=== PATIENT | female | born 1960 | race Caucasian/White ===

== ENCOUNTER 2024-05-29 14:32 | Emergency (ER) | payer MEDICARE, MEDICAID, SELFPAY ==
[2024-05-29] VITALS (19 sets, daily range): BP systolic 145–179; BP diastolic 39–88; PULSE 66–88; RESP 14–20; TEMP 36.4–36.8; O2SAT 96–100
--- NOTE | 2024-05-29 14:49 | W.ED.GENAD ---
Discharge Plan Disposition Patient Disposition: Transfer-Acute Inpatient Care Specific Acute Inpt Facility: [facility] Condition: Stable Discharge Details Clinical Impression: Hernia with obstruction, Ovarian cyst Primary Care Provider: Sofía Brady ED Provider: Ollie Morales Home Meds and New Rx's Prescriptions: No Action cholecalciferol (vitamin D3) 25 mcg (1,000 unit) tablet 50 mcg PO DAILY Qty: 90 3RF acetaminophen [Tylenol Arthritis Pain] 650 mg tablet extended release 1,300 mg PO Q12H metoprolol succinate 50 mg tablet extended release 24 hr 50 mg PO DAILY Qty: 30 2RF HPI General Date/Time Provider Initiated Documentation: 05/29/24 14:33. HPI Narrative: 63 year-old female presents to ED today by POV/ambulating with a chief complaint of lower abdominal pain, worsening over the past 3 days. Quality described as sharp abdominal pain, no radiation to diarrhea, nausea, denies complete constipation, unsure if passing flatus, denies fever, denies chest pain, endorses mild cough. Severity is described as 6/10. Palliating factors include nothing helping. Provoking factors include movement, touch. Events leading up to the incident/Associated Symptoms: Patient has history of abdominal wall hernias, has prior surgical history at [facility], history of uterine malignancy. Patient not anticoagulated. Related Data Home Medications ?Medication ?Instructions ?Recorded ?Confirmed acetaminophen 650 mg 1,300 mg PO Q12H 05/18/24 05/29/24 tablet,extended release (Tylenol Arthritis Pain) cholecalciferol (vitamin D3) 25 50 mcg (2 x 25 mcg (1,000 unit)) 05/19/24 05/29/24 mcg (1,000 unit) tablet PO DAILY #90 tabs metoprolol succinate 50 mg 50 mg PO DAILY #30 tabs 05/24/24 05/29/24 tablet,extended release 24 hr Previous Rx's ?Medication ?Instructions ?Recorded cholecalciferol (vitamin D3) 25 50 mcg (2 x 25 mcg (1,000 unit)) 05/19/24 mcg (1,000 unit) tablet PO DAILY #90 tabs metoprolol succinate 50 mg 50 mg PO DAILY #30 tabs 05/24/24 tablet,extended release 24 hr Allergies Allergy/AdvReac Type Severity Reaction Status Date / Time albuterol Allergy Unknown Anxiety Verified 05/29/24 14:42 amoxicillin Allergy Unknown Itchiness, Verified 05/29/24 14:42 swelling aspirin Allergy Unknown Unknown Verified 05/29/24 14:42 azithromycin (From Zithromax) Allergy Unknown Itchiness Verified 05/29/24 14:42 calcitonin Allergy Unknown Dizziness/L Verified 05/29/24 14:42 ighthead ciprofloxacin Allergy Unknown Anxiety Verified 05/29/24 14:42 doxycycline Allergy Unknown Unknown Verified 05/29/24 14:42 hydrochlorothiazide Allergy Unknown Stomach Verified 05/29/24 14:42 pain ibuprofen Allergy Unknown Unknown Verified 05/29/24 14:42 metformin Allergy Unknown Unknown Verified 05/29/24 14:42 omeprazole Allergy Unknown Unknown Verified 05/29/24 14:42 pantoprazole Allergy Unknown Unknown Verified 05/29/24 14:42 paroxetine Allergy Unknown Unknown Verified 05/29/24 14:42 Penicillins Allergy Unknown Itchiness, Verified 05/29/24 14:42 swelling phenazopyridine (From Allergy Unknown Unknown Verified 05/29/24 14:42 Pyridium) polyethylene glycol 3350 Allergy Unknown Unknown Verified 05/29/24 14:42 (From Miralax) prednisone Allergy Unknown unknown Verified 05/29/24 14:42 sulfamethoxazole (From Allergy Unknown Unknown Verified 05/29/24 14:42 Bactrim) trimethoprim (From Bactrim) Allergy Unknown Unknown Verified 05/29/24 14:42 General Stated Complaint: Abd Prob STELLA: 3 Review of Systems All systems reviewed & are unremarkable except as noted in HPI and below Exam Narrative Exam Narrative: GENERAL APPEARANCE: Morbidly obese, non-toxic, awake and alert, atraumatic, no acute distress. SKIN: Warm, pink, dry, intact, without rashes/lesions/ulcerations. HEAD: Normocephalic, atraumatic, normal hair distribution for gender/age. EYES: Normal conjunctiva, no exudates on lids/lashes. ENT: Nares patent, no circumoral cyanosis, no facial swelling NECK: Supple, trachea midline, painless cervical ROM. LUNGS/CHEST: Lungs CTA bilaterally-difficult to auscultate due to body habitus, non-labored respirations, normal A/P diameter, symmetrical expansion, no chest wall deformity HEART (CV/PV): Regular rate and rhythm without murmur, no peripheral edema, no JVD. ABDOMEN:, Hypoactive bowel sounds but difficult due to body habitus, soft, non-distended, no guarding, diffuse lower abdominal tenderness, negative Bauman sign, no CVA tenderness bilaterally to percussion. MSK: Normal ROM, no swelling/deformity to bilateral UEs or LEs, moving all extremities without weakness, no cyanosis, spine midline without tenderness, normal curvature. NEURO: Mental Status AAOx4 - alert to person, place, time, events No facial droop, no forehead involvement. Motor: No focal weakness - strength 5/5 in bilateral UEs and LEs, proximal and distal, symmetric. Sensory: sensation intact to light touch globally. Gait NT PSYCH: euthymic, cooperative, pleasant, appropriate speech Course Vital Signs Vital signs: Vital Signs Pulse 71 05/29/24 14:39 Respiratory Rate 20 05/29/24 14:39 Blood Pressure 175/57 H 05/29/24 14:39 Pulse Oximetry 98 05/29/24 14:39 Pulse 71 05/29/24 14:39 Respiratory Rate 20 05/29/24 14:39 Respiratory Effort Normal, Non-Labored 05/29/24 14:42 Blood Pressure 175/57 H 05/29/24 14:39 Blood Pressure Position Sitting 05/29/24 14:39 Pulse Oximetry 98 05/29/24 14:39 Oxygen Delivery Method Room Air 05/29/24 14:39 Oxygen Flow Rate 0 05/29/24 14:39 Medical Decision Making This dictation utilizes [id number] dictation software and may contain unedited grammatical errors. 63 year-old female presents to ED today by POV/ambulating with a chief complaint of lower abdominal pain, worsening over the past 3 days. Quality described as sharp abdominal pain, no radiation to diarrhea, nausea, denies complete constipation, unsure if passing flatus, denies fever, denies chest pain, endorses mild cough. Severity is described as 6/10. Palliating factors include nothing helping. Provoking factors include movement, touch. Events leading up to the incident/Associated Symptoms: Patient has history of abdominal wall hernias, has prior surgical history at [facility], history of uterine malignancy. Patients' medical history: Morbid obesity, history of cholecystectomy, prediabetes, GERD, hypertension, essential tremor, asthma, KOLBY. 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 Pertinent exam findings / vital signs include morbid obesity makes exam somewhat difficult, has diffuse lower abdominal tenderness, no right upper or left upper quadrant tenderness, negative Bauman sign, no CVA tenderness to percussion bilaterally, lungs difficult to auscultate due to morbid obesity, regular rate and rhythm, neuro intact, nontoxic vitals. Differential / pathologies of concern include small bowel obstruction, incarcerated hernia, ovarian pathology, malignancy, appendicitis, gastroenteritis, IBS, sepsis. Diagnostic studies of: -CBC, CMP, lactate, lipase, troponin I, UA, CT ABD/pelvis W contrast. -CBC shows no leukocytosis, no anemia -CMP without actionable abnormality -Lactate negative -Lipase negative -Troponin negative with reliable onset -UA is benign -CT shows abdominal wall hernia with some signs of obstruction as well as a large left ovarian cyst 9 cm Interventions of: -IV Tylenol 650 mg, 4 mg IV Zofran. ED Course/Assessment/Plan: Morbidly obese patient with need for surgical consult and evaluation presents with lower abdominal pain, has a hernia in the abdominal wall with signs of obstruction as well as a large ovarian cyst that warrants rule out by ultrasound which is not available at this facility, patient has had prior hernia surgeries at [facility] as well as for [facility] oncologist is there. I did speak with [facility] general surgery Dr. Leija at 1818 who recommended ED to ED transfer for evaluation. I was connected with Dr. Patton in the emergency department who accepts patient for transfer at 1820. Transferred by basic level at 1915. Disposition of Hernia with Obstruction, Ovarian Cyst. Patient verbalized understanding of the plan and return to ED criteria and engaged in shared decision making. Medical Records Medical records reviewed: Yes I reviewed the patient's medical records. Imaging Data Radiologic Study: Attestation: I personally reviewed and interpreted this imaging study as follows: Imaging: CT Scan Radiologist's impression: EXAM: CT ABDOMEN PELVIS W CLINICAL HISTORY: lower ABD pain. TECHNIQUE: Imaging Protocol: Axial computed tomography images with coronal and sagittal reformatted images were created and reviewed CONTRAST MATERIAL: Intravenous: Omnipaque 350 Contrast volume:100 ml Oral: no COMPARISON: No exams were available for comparison FINDINGS: ABDOMEN and PELVIS: Exam is limited by patient body habitus. Lung Bases: No acute findings. Liver: Normal density. No suspicious mass. Gallbladder and biliary tract: Gallbladder not seen. Mild dilation of the common bile duct. Pancreas: Normal density. No abnormal calcifications or inflammatory process. No evidence of mass. Spleen: Normal. Kidneys: Horizontal axis of the right kidney. No radiodense stones. No obstructive uropathy. No suspicious masses seen. Adrenal glands: No masses seen. Vasculature: Abdominal aorta non-dilated. Soft tissues: Dehiscence of the anterior abdominal wall musculature. Hernia noted inferiorly and anteriorly containing loop of small bowel. There is mild dilatation of the edema upstream small bowel. In the lower anterior abdominal wall pannus. Bladder: No gross wall thickening. No calculi.No focal mass. Bowel: Mild dilatation of small bowel anteriorly in the lower abdomen at the site of the anterior abdominal wall hernia. Findings consistent with partial obstruction. No bowel wall thickening. Appendix not seen. Normal quantity of stool. Peritoneal cavity: No ascites. No focal collection. No mesenteric inflammatory response. Bones: Mild compression fracture of the superior endplate of T12. Moderate compression of L1, L2 and L4. Mild compression of the L5 vertebral body. Degenerative changes. Reproductive organs: The uterus and right ovary are unremarkable. There is a cyst on the left ovary measuring 5.7 x 3.2 by 9.2 cm. Lymph nodes: No pathologically enlarged lymph nodes. IMPRESSION:: Lower anterior abdominal wall hernia causing mild destruction of a loop of small bowel. Large left ovarian cyst. Lab Data Lab results reviewed: Yes I reviewed the patient's lab results. Labs: Laboratory Tests Range/Units 05/29/24 05/29/24 15:15 15:55 WBC (4.4-10.8) 10^3/uL 4.45 RBC (3.93-5.22) 10^6/uL 4.47 Hgb (11.2-15.7) g/dL 13.9 Hct (36.0-46.0) % 43.1 MCV (80-95) fL 96 H MCH (27.0-33.0) pg 31.1 MCHC (32.0-36.0) % 32.3 RDW (11.7-14.6) % 13.5 Plt Count (130-400) 10^3/uL 211 MPV (8.0-11.0) fL 9.1 Immature Gran % % 0.2 Neutrophils % % 59.3 Lymphocytes % % 29.4 Monocytes % % 9.4 Eosinophils % % 1.3 Basophils % % 0.4 Nucleated RBC % (0.0-0.3) % 0.0 Absolute Neutrophils (1.2-6.7) 10^3/uL 2.63 Absolute Lymphocytes (1.2-3.4) 10^3/uL 1.31 Absolute Monocytes (0.1-0.8) 10^3/uL 0.42 Absolute Eosinophils (0.0-0.7) 10^3/uL 0.06 Absolute Basophils (0.0-0.2) 10^3/uL 0.02 VBG Lactate (0.6-1.4) mmol/L 0.9 Sodium (136-145) mmol/L 141 Potassium (3.5-5.1) mmol/L 5.0 Chloride (98-107) mmol/L 106 Carbon Dioxide (21.0-32.0) mmol/L 31.7 Anion Gap (3-11) mmol/L 3.3 BUN (7-18) mg/dL 13 Creatinine (0.55-1.02) mg/dL 0.8 Est GFR (CKD-EPI 2020) (mL/min/1.73m2) 81.72 Glucose (74-106) mg/dL 101 Calcium (8.5-10.1) mg/dL 9.1 Magnesium (1.8-2.4) mg/dL 2.0 Total Bilirubin (0.2-1.0) mg/dL 0.48 AST (15-37) U/L 17 ALT (14-59) U/L 18 Alkaline Phosphatase (46-116) U/L 54 Troponin I (<or=51) ng/L 6 Total Protein (6.4-8.2) g/dL 7.5 Albumin (3.4-5.0) g/dL 3.3 L Lipase (16-77) U/L 32 Urine Color (Yellow) Yellow Urine Clarity (Clear) Clear Urine pH (5-8) 5.5 Ur Specific [place] (1.005-1.025) 1.010 Urine Protein (Neg-Trace) mg/dL Negative Urine Ketones (Negative) mg/dL Negative Urine Blood (Negative) Trace-intact H Urine Nitrite (Negative) Negative Urine Bilirubin (Negative) Negative Urine Urobilinogen (Up to 0.2) mg/dL 0.2 Ur Leukocyte Esterase (Negative) Negative Urine RBC (0-2) HPF 0-2 Urine WBC (0-5) HPF Negative Ur Epithelial Cells (Negative) HPF Rare Urine Crystals (Negative) HPF Negative Urine Bacteria (Negative) HPF Negative Urine Casts (Negative) LPF Negative Urine Mucus (Negative) Negative Ur Culture Indicated? No Urine Glucose (Negative) mg/dL Negative Quality:SDOH Health Related Social Needs: No Data to Display PFSH All Active Problems (Updated 05/29/24 @ 18:56 by JEANNIE Calix) Ovarian cyst (Acute) Hernia with obstruction (Acute) Pain of right thumb (Acute) Compression fracture of L4 vertebra (Acute) Prediabetes (Acute) Osteoarthritis (Chronic) Obesity (Chronic) Dizziness and giddiness (Acute) Unsteadiness on feet (Acute) Primary generalized (osteo)arthritis (Acute) Gastro-esophageal reflux disease without esophagitis (Acute) Essential (primary) hypertension (Acute) Combined forms of age-related cataract, bilateral (Acute) Essential tremor (Acute) Acquired absence of other specified parts of digestive tract (Acute) Personal history of malignant neoplasm of other parts of uterus (Acute) Dorsalgia, unspecified (Acute) Major depressive disorder, recurrent severe without psychotic features (Acute) Weakness (Acute) Constipation, unspecified (Acute) Vitamin D deficiency (Acute) Unspecified hearing loss, unspecified ear (Acute) Anxiety disorder, unspecified (Acute) Generalized anxiety disorder (Acute) Other spondylosis, lumbar region (Acute) Carpal tunnel syndrome, right upper limb (Acute) Diarrhea, unspecified (Acute) Asthma (Chronic) Unilateral primary osteoarthritis, right knee (Acute) Unspecified abdominal pain (Acute) Anatomical narrow angle, bilateral (Acute) Obstructive sleep apnea (Chronic) Pain in right ankle and joints of right foot (Acute) Low back pain, unspecified (Acute) Adjustment disorder, unspecified (Chronic) Morbid obesity due to excess calories (Acute) Medical History (Updated 05/29/24 @ 18:56 by JEANNIE Calix) Malignant neoplasm of uterus Surgical History (Updated 05/18/24 @ 17:19 by Twila Terrell RN) History of tonsillectomy History of bunionectomy of left great toe H/O hernia repair History of colon surgery Colon rupture repair H/O section (1988) History of colonoscopy (2018) History of cholecystectomy (2019) H/O laser iridotomy (2021) Family History (Updated 05/02/24 @ 13:26 by Brissa Tipton) Mother Anxiety Diabetes Heart disease Paternal Grandfather Cancer Brother Depression Diabetes Cancer Maternal Grandmother Heart disease Social History (Updated 05/02/24 @ 12:21 by Brissa Tipton) Smoking/Tobacco Use Status: Never Second Hand Exposure: No Smoking risk assessment performed?: Yes Alcohol Intake: never Drug use: Never Substance use type: does not use Adopted: No Caregiver/Support person: No Foster care: No Household members: none Housing: apartment Number of Children: 2 number of grandchildren: 0 Communication Needs: Hard of Hearing and Corrective Lenses Education Level: college Do you need help understanding health information?: Often Pets and animals: No Sexually active: No Do you think of yourself as: straight/heterosexual Current gender identity: female What is your relationship status?: How often do you talk on the phone with friends or family?: three or more times per week How often do you get together with friends or relatives?: decline to answer Do you belong to any clubs or organized social groups?: decline to answer Panel score (0-1 are the most socially isolated patients): 1 What type of physical activity do you participate in: walking Duration: 30-45 minutes/day Frequency: daily Sharita/Episcopalian: Other Seatbelt use: always Helmet use: No Drive intox or ride w/intox bus driver supervisor: No Do you feel safe at home: Yes Do you feel safe in your relationship?: Yes
[2024-05-29 15:18] LABS: Lactate 0.9 mmol/L (0.6-1.4)
[2024-05-29 15:20] LABS: Abs Immature Grans 0.01 10^3/uL (0.0-0.06); Absolute Basophil Count 0.02 10^3/uL (0.0-0.2); Absolute Eosinophil Count 0.06 10^3/uL (0.0-0.7); Absolute Lymphocyte Count 1.31 10^3/uL (1.2-3.4); Absolute Monocyte Count 0.42 10^3/uL (0.1-0.8); Absolute Neutrophil Count 2.63 10^3/uL (1.2-6.7); Basophils % 0.4 %; Eosinophils % 1.3 %; HCT 43.1 % (36.0-46.0); HGB 13.9 g/dL (11.2-15.7); Immature Grans % 0.2 %; Lymphocytes % 29.4 %; MCH 31.1 pg (27.0-33.0); MCHC 32.3 % (32.0-36.0); MCV 96 fL (80-95); MPV 9.1 fL (8.0-11.0); Monocytes % 9.4 %; Neutrophils % 59.3 %; Platelet Count 211 10^3/uL (130-400); RBC 4.47 10^6/uL (3.93-5.22); RDW 13.5 % (11.7-14.6); RDW-SD 48.2 fL; WBC 4.45 10^3/uL (4.4-10.8)
[2024-05-29] MEDS: ACETAMINOPHEN 650 MG/65 ML BAG 260 MG IVPB (15:22)
[2024-05-29] MEDS: Ondansetron 4 MG/2 ML VIAL IVP (15:22)
[2024-05-29 15:38] LABS: ALT 18 U/L (14-59); AST 17 U/L (15-37); Albumin 3.3 g/dL (3.4-5.0); Alkaline Phosphatase 54 U/L (46-116); Anion Gap 3.3 mmol/L (3-11); BUN 13 mg/dL (7-18); Bilirubin, Total 0.48 mg/dL (0.2-1.0); CO2 31.7 mmol/L (21.0-32.0); CREATININE 0.8 mg/dL (0.55-1.02); Calcium 9.1 mg/dL (8.5-10.1); Chloride 106 mmol/L (98-107); Estimated GFR 81.72 (mL/min/1.73m2); Glucose 101 mg/dL (74-106); Lipase 32 U/L (16-77); Sodium 141 mmol/L (136-145); Total Protein 7.5 g/dL (6.4-8.2); Troponin I 6 ng/L (<or=51)
[2024-05-29 16:06] LABS: Bilirubin Negative (Negative); Blood Trace-intact (Negative); Clarity Clear (Clear); Glucose Negative (Negative); Ketones Negative (Negative); Leukocyte Esterase Negative (Negative); Nitrite Negative (Negative); Urobilinogen 0.2 mg/dL (Up to 0.2); pH 5.5 (5-8)
[2024-05-29 16:14] LABS: Bacteria Negative HPF (Negative); C & S Indicated? No; Casts Negative LPF (Negative); Crystals Negative HPF (Negative); Epithelial Cells Rare HPF (Negative); Mucus Negative (Negative); RBC 0-2 HPF (0-2); WBC Negative HPF (0-5)
[2024-05-29] MEDS: Omnipaque 350 MG/ML 100 ML BTL IJ (16:29)
[2024-05-29] MEDS: Normal Saline - Diluent 50 ML VIAL IJ (16:29)
--- NOTE | 2024-05-29 16:31 | DI.CT_ITS ---
Exam(s) CT ABDOMEN PELVIS W EXAM: CT ABDOMEN PELVIS W CLINICAL HISTORY: lower ABD pain. TECHNIQUE: Imaging Protocol: Axial computed tomography images with coronal and sagittal reformatted images were created and reviewed CONTRAST MATERIAL: Intravenous: Omnipaque 350 Contrast volume:100 ml Oral: no COMPARISON: No exams were available for comparison FINDINGS: ABDOMEN and PELVIS: Exam is limited by patient body habitus. Lung Bases: No acute findings. Liver: Normal density. No suspicious mass. Gallbladder and biliary tract: Gallbladder not seen. Mild dilation of the common bile duct. Pancreas: Normal density. No abnormal calcifications or inflammatory process. No evidence of mass. Spleen: Normal. Kidneys: Horizontal axis of the right kidney. No radiodense stones. No obstructive uropathy. No susp icious masses seen. Adrenal glands: No masses seen. Vasculature: Abdominal aorta non-dilated. Soft tissues: Dehiscence of the anterior abdominal wall musculature. Hernia noted inferiorly and ant eriorly containing loop of small bowel. There is mild dilatation of the edema upstream small bowel. In the lower anterior abdominal wall pannus. Bladder: No gross wall thickening. No calculi.No focal mass. Bowel: Mild dilatation of small bowel anteriorly in the lower abdomen at the site of the anterior abd ominal wall hernia. Findings consistent with partial obstruction. No bowel wall thickening. Appendi x not seen. Normal quantity of stool. Peritoneal cavity: No ascites. No focal collection. No mesenteric inflammatory response. Bones: Mild compression fracture of the superior endplate of T12. Moderate compression of L1, L2 and L4. Mild compression of the L5 vertebral body. Degenerative changes. Reproductive organs: The uterus and right ovary are unremarkable. There is a cyst on the left ovar y measuring 5.7 x 3.2 by 9.2 cm. Lymph nodes: No pathologically enlarged lymph nodes. IMPRESSION:: Lower anterior abdominal wall hernia causing mild destruction of a loop of small bowel. Large left ovarian cyst. Findings called to Ollie Morales of the emergency department. Unexpected findings RADIATION DOSE DELIVERED: Total DLP DATA REPOSITORY: All CT scans at this facility are submitted to the National Radiology Data Registry (NRDR) Dose Index Registry (DIR) with the [employer] (ACR). RADIATION OPTIMIZATION: All CT scans at this facility use at least one of these dose optimization te chniques: automated exposure control; mA and/or kV adjustment per patient size (includes targeted exa ms where dose is matched to clinical indication); or iterative reconstruction.
== END 2024-05-29 19:37 | disposition short-term general hospital (02) ==
PROVIDERS: Emergency Provider Physician Assistant; PCP Nurse Practitioner Family
DX: K43.6 Other and unspecified ventral hernia with obstruction, without gangrene (principal); K21.9 Gastro-esophageal reflux disease without esophagitis; I10 Essential (primary) hypertension; J45.909 Unspecified asthma, uncomplicated; E66.01 Morbid (severe) obesity due to excess calories; Z98.890 Other specified postprocedural states; Z87.19 Personal history of other diseases of the digestive system; Z85.42 Personal history of malignant neoplasm of other parts of uterus
CPT/HCPCS: 80053; 83690; 96374; 96375; 99285; 74177; 81003; 81015; 83605; 83735; 84484; 85025; J0131; J2405; J3490

== ENCOUNTER 2024-07-14 15:44 | Outpatient (CLI) | payer MEDICARE, MEDICAID, SELFPAY ==
--- NOTE | 2024-07-18 12:47 | TELEFU_ITS ---
Date of service: 07/13/24 Time of Service: 12:30 Nutrition Note NOTE: kathy referred for nutrition services back in May 2024 but had hospitalization and other barriers to getting in until recently. referral was for weight mgt and prediabetes. Pt also complains of generalized GI symptoms with alternating diarrhea and constipation more frequently than desired and unsure of what to eat to help manage this. She states she has GI appt 08/02/24 and [place] [facility] [place] - has hx of abdominal surgery and was told there could be scar tissue lending to her concerns. She does find better toleration of dairy products by using lactose free versions. She shares she subjectively has found she tolerates unbleached flour vs bleached flour - throat problems with bleached flour Denies ever being tested for food allergies. Kathy has some problems with dentition with lack of upper middle teeth. She has a tight food budget as she is out of work and receives social security. She does get a jefferson benefit from the state and uses this mainly for food. She mainly sedentary and ambulates with walker. She shares high stress levels chronically and most recently acutely with her leaving her and moving in with another tenant of the same apartment building. We reviewed some of her barriers, such as skipping breakfast and drinking multiple cups of tea throughout the day with 2tsp sugar in each one (has at least 4 cups per day). We discussed added sugar goal of <30grams per day and reviewed sources and how to track. We discussed moving any way she can and consider resistance bands for upper body or bicep curls with canned beans,etc... to help start some sort of movement and trying to stimulate muscles. We reviewed sample menu for 2 days with ~1500kcals, 100g protein and 150g total carbs, 50 g fat. We discussed processed foods and how fiber usually decreases with processing and can increase glycemic load of foods. We discussed keeping a journal of intake and GI sx's to try and identify food triggers. We set up a follow up appt for 2/ to follow up on added sugar intake, activity, protein intake and menu planning/patterns. Suggest consideration of GLP-1 if dietary changes don't start significantly impacting her weight status. Will continue to work with Kathy as she desires to support her in her nutrition goals. Time Spent in Nutritional Counseling and Treatment: 25 minutes
== END 2024-07-14 15:45 | disposition home or self-care (01) ==
LOC: DS 15:48
PROVIDERS: PCP Nurse Practitioner Family; Visit Provider Dietitian, Registered
DX: R73.03 Prediabetes (principal)
CPT/HCPCS: 00123; 97802

== ENCOUNTER 2024-08-10 11:34 | Emergency (ER) | payer MEDICARE, MEDICAID, SELFPAY ==
[2024-08-10 11:45] VITALS: BP 165/81; PULSE 72; RESP 15; TEMP 36.7; O2SAT 98
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
[2024-08-10] MEDS: Bacitracin 1 PACKET TP (12:38)
[2024-08-10 13:11] LABS: Bilirubin Negative (Negative); Blood Small (Negative); Clarity Sl Cloudy (Clear); Glucose Negative (Negative); Ketones Negative (Negative); Leukocyte Esterase Negative (Negative); Nitrite Negative (Negative); Specific Gravity 1.025 (1.005-1.025); Urobilinogen 0.2 mg/dL (Up to 0.2)
[2024-08-10 13:30] LABS: Bacteria Few HPF (Negative); C & S Indicated? No; Casts Negative LPF (Negative); Crystals Negative HPF (Negative); Epithelial Cells Many HPF (Negative); Mucus Moderate (Negative); WBC 0-2 HPF (0-5)
== END 2024-08-10 16:02 | disposition home or self-care (01) ==
PROVIDERS: Emergency Provider Registered Nurse Emergency; PCP Nurse Practitioner Family
DX: T21.11XA Burn of first degree of chest wall, initial encounter (principal); N61.0 Mastitis without abscess; B37.31 Acute candidiasis of vulva and vagina
CPT/HCPCS: 99283; 81003; 81015

== ENCOUNTER 2024-08-23 15:44 | Outpatient (REF) | payer MEDICARE, MEDICAID, SELFPAY | END 2024-08-23 15:45 | disposition home or self-care (01) | LOC: LBN 15:44 | PROVIDERS: PCP Nurse Practitioner Family; Visit Provider Nurse Practitioner Family | DX: N76.0 Acute vaginitis (principal); Z09 Encounter for follow-up examination after completed treatment for conditions other than malignant neoplasm | CPT/HCPCS: 87480; 87510; 87660 ==

== ENCOUNTER 2024-09-11 02:33 | Outpatient (CLI) | payer MEDICARE, MEDICAID, SELFPAY ==
--- NOTE | 2024-09-11 14:17 | TELEFU_ITS ---
Date of service: 09/11/24 Time of Service: 13:00 Nutrition Note NOTE: Follow up with Kathy. no weight today - states she knows she did not lose any. Kathy wanted to focus on her GI issues as she feels she cannot eat anything healthy for her - saw GI and was told no green leafy veggies/salads, no raw veggies and other restrictions for IBS symptoms. She has an appt for surgery consultation later this month and has allergy testing scheduled for February. Last night Kathy had cottage cheese with some leftover canned beets she heated up and had frosted shredded wheat with milk and yogurt. toleration of these meals was ok - breakfast caused a little symptoms with GI pain/diarrhea. E ncouraged to stay off of dairy for the most part - seems to tolerate cottage cheese and this can be a good protein source - just high in sodium - encouraged to look for lower sodium version. Kathy likes to go to [employer] below her appt and like cocoa and miso cookie at night. Has been trying different foods with inconsistent results. I highly recommended she try to get into a baseline diet of foods she tolerates and reduces her sx for a number of days before trying anything new or unfamiliar -would like her to establish a baseline routine that she knows will not contribute significant symptoms - she feels she tolerates most meats fine, cottage cheese, eggs. She is wondering if baby food might be a consideration as she doesn't enjoy food prep/cooking as well. I was fine with this approach as it helps with having nutritious, [id number] smooth purees and can experiment to see if helps reduce sx's. Also encouraged bone broth 8-16oz per day (low sodium) totry and increase collagen intake. - can sip in mug of mix with cooked rice if more palatable. Highlighted that Kathy should not be trying all sorts of new things as she cannot discern which is causing sx's - told her to try a boring diet for 2-3 days of food she has a hx of tolerating and try to advance variety from there. She called me shortly after the meeting and was at a store where she was trying Kombucha tea- I reiterated that this was something new and might give her sx's but if she wanted to try it to note if sx appear and can move it into her rotation if she tolerates, but highlighted again to have consistent intake that works with her and stop going all over the place with her food choices. Set up follow up in October and will check in then Time Spent in Nutritional Counseling and Treatment: 45 min
== END 2024-09-11 02:34 | disposition home or self-care (01) ==
LOC: DS 02:36
PROVIDERS: PCP Nurse Practitioner Family; Visit Provider Dietitian, Registered
DX: K58.9 Irritable bowel syndrome, unspecified (principal)
CPT/HCPCS: 00123; 97803

== ENCOUNTER 2024-09-25 01:16 | Outpatient (CLI) | payer MEDICARE, MEDICAID, SELFPAY ==
--- NOTE | 2024-09-25 07:15 | DI.RAD_ITS ---
Exam(s) XR FOOT LT COMPLETE EXAM: XR FOOT LT COMPLETE CLINICAL HISTORY: Pain lt heel,lt foot pain,m79.672. TECHNIQUE: 2D digital imaging was performed. Three views. COMPARISON: No exams were available for comparison FINDINGS: BONES: No acute fracture is present. There is a screw in distal metatarsal no bony destructive lesio n is seen. Heel spurs JOINTS: No dislocation present. Plantar arch is maintained. No significant degenerative changes. SOFT TISSUE: Normal. IMPRESSION: Remote postsurgical changes at the with screw in place at the distal 5th metatarsal. DATA REPOSITORY: RADIATION DOSE DELIVERED:
== END 2024-09-25 01:36 ==
LOC: DI 01:16
PROVIDERS: PCP Nurse Practitioner Family; Visit Provider Podiatrist
DX: M79.672 Pain in left foot (principal)
CPT/HCPCS: 73630

== ENCOUNTER 2024-10-17 00:19 | Emergency (ER) | payer MEDICARE, MEDICAID, SELFPAY ==
[2024-10-17] VITALS (53 sets, daily range): BP systolic 99–157; BP diastolic 38–74; PULSE 55–85; RESP 18; TEMP 36.2; O2SAT 94–100
--- NOTE | 2024-10-17 00:45 | DI.CT_ITS ---
Exam(s) CT THORACIC LUMBAR SPINE WO EXAM: CT THORACIC LUMBAR SPINE WO CLINICAL HISTORY: severe back pain, midline TTP, hx compression fxs. TECHNIQUE: Imaging Protocol: Axial, coronal and sagittal images were reconstructed utilizing bone al palmiraithm. COMPARISON: CT CT ABDOMEN PELVIS W from 05/29/2024 FINDINGS: Thoracic spine: Bones: Stable mild compression fracture and Schmorl's node at the superior endplate of T12. No acute fractures are seen. The alignment of the spine is normal including the cervicothoracic junction. Soft tissues: The soft tissues of the chest are unremarkable. No large disk herniations are identifie d. Endplate osteophytes eccentric toward the right at multiple levels. Vacuum disc phenomena at mul tiple levels. Lumbar spine: Bones: Stable moderate compression fracture of the L1, L2 and L4 vertebral bodies, with greater compr ession centrally. Stable mild compression of the superior endplate of L5. No acute fracture is iden tified. Degenerative disc changes and facet degenerative changes are present. Alignment: Normal. Soft tissues: There is no large disc herniation. No paraspinal hematoma. IMPRESSION: Multiple stable compression fractures. No new compression fractures. RADIATION DOSE DELIVERED: 4,334.64mGy.cm Total DLP 4,334.64mGy.cm Total DLP DATA REPOSITORY: All CT scans at this facility are submitted to the National Radiology Data Registry (NRDR) Dose Index Registry (DIR) with the [employer] (A[employer]). RADIATION OPTIMIZATION: All CT scans at this facility use at least one of these dose optimization te chniques: automated exposure control; mA and/or kV adjustment per patient size (includes targeted exa ms where dose is matched to clinical indication); or iterative reconstruction.
[2024-10-17] MEDS: Acetaminophen 500 MG TAB 1000 MG PO (01:02)
[2024-10-17] MEDS: Lidocaine 5% Patch 1 PATCH TP (01:04)
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
--- NOTE | 2024-10-17 02:35 | DI.VRAD_ITS ---
PROCEDURE INFORMATION: Exam: CT Thoracic Spine Without Contrast Exam date and time: 10/17/2024 1:04 AM Age: 63 years old Clinical indication: Low back pain; Pain in thoracic spine; Other: Severe pain; Severe back pain, midline ttp, HX compression fxs TECHNIQUE: Imaging protocol: Computed tomography of the thoracic spine without contrast. Radiation optimization: All CT scans at this facility use at least one of these dose optimization techniques: automated exposure control; mA and/or kV adjustment per patient size (includes targeted exams where dose is matched to clinical indication); or iterative reconstruction. COMPARISON: CT ABDOMEN PELVIS W 05/29/2024 4:18 PM FINDINGS: Bones/joints: T12: Old superior endplate compression fracture deformity with mild loss of central vertebral height and a Schmorl's node extending through the superior endplate, also seen on the comparison exam from May 29, 2024. No acute lumbar fracture or malalignment is seen. There is prominent discogenic degeneration at C6-C7 with loss of disc height, anterior osteophyte formation, posterior osteophytic ridging, and bilateral uncovertebral hypertrophy. There is moderate discogenic degeneration at several lower thoracic levels with vacuum disc deformities and anterior osteophytes. There is no significant thoracic stenosis. Soft tissues: No gross superficial soft tissue fluid collection or mass is seen through the visualized thoracic region. IMPRESSION: No acute thoracic fracture or gross vertebral malalignment is seen. PROCEDURE INFORMATION: Exam: CT Lumbar Spine Without Contrast Exam date and time: 10/17/2024 1:04 AM Age: 63 years old Clinical indication: Low back pain; Pain in thoracic spine; Other: Severe pain; Severe back pain, midline ttp, HX compression fxs TECHNIQUE: Imaging protocol: Computed tomography of the lumbar spine without contrast. Radiation optimization: All CT scans at this facility use at least one of these dose optimization techniques: automated exposure control; mA and/or kV adjustment per patient size (includes targeted exams where dose is matched to clinical indication); or iterative reconstruction. COMPARISON: CT ABDOMEN PELVIS W 05/29/2024 4:18 PM FINDINGS: Bones/joints: L1: Old superior and inferior endplate compression fracture deformities with severe loss of central vertebral height and Schmorl's nodes extending through the superior and inferior endplates, grossly stable compared with the prior exam from May 29, 2024. L1: Old superior and inferior endplate compression fracture deformities with moderate loss of central vertebral height, stable compared with the prior exam. L3: Intact. L4: Old superior and inferior endplate compression fracture deformities with moderate loss of central vertebral height, stable compared with the prior exam. L5: Old superior and inferior endplate compression deformities with mild loss of central vertebral height, stable compared with the prior exam. T12-L1: No focal disc herniation. No central canal narrowing or neural foraminal narrowing. L1-L2: No focal disc herniation. No central canal narrowing. Mild bilateral foraminal narrowing. L2-L3: Posterior osteophytic ridging. Mild central canal narrowing. Mild left and moderate right-sided foraminal narrowing. L3-L4: No focal disc herniation. Mild central canal narrowing. Mild-moderate bilateral facet arthrosis. Moderate bilateral foraminal narrowing with disc and/or osteophytic material apparently abutting the L3 nerve roots bilaterally. L4-L5: Posterior osteophytic ridging. Moderate-severe central canal narrowing, image 98 of series 19. Moderate-severe bilateral foraminal narrowing with osteophytic material apparently abutting the L4 nerve roots bilaterally. L5-S1: Small broad-based posterior disc bulge. Mild central canal narrowing. Moderate-severe bilateral foraminal narrowing with osteophytic material abutting and partially deforming the right L5 nerve root. Soft tissues: No gross superficial soft tissue fluid collection or mass is seen through the visualized lumbar region. IMPRESSION: 1. Multiple vertebral compression deformities, as detailed above. No acute lumbar fracture or malalignment seen. 2. Degenerative changes, as detailed level by level above. Dictated and Authenticated by: Kehinde Liu MD. Orderin Juan David Gray MD
--- NOTE | 2024-10-17 03:16 | NUR.NOTE ---
PT is up for DC but is unable to find a ride. PT will be DC in the [facility] Note:
== END 2024-10-17 07:27 | disposition home or self-care (01) ==
PROVIDERS: Emergency Provider Student in an Organized Health Care Education/Training Program; PCP Nurse Practitioner Family
DX: M54.9 Dorsalgia, unspecified (principal)
CPT/HCPCS: 99284; 72128; 72131; 99283

== ENCOUNTER 2024-10-27 15:02 | Emergency (ER) | payer MEDICARE, MEDICAID, SELFPAY ==
[2024-10-27 15:00] VITALS: BP 163/85; PULSE 93; RESP 20; TEMP 36.6; O2SAT 97
[2024-10-27 16:52] VITALS: BP 158/74; PULSE 88; RESP 18; O2SAT 97
[2024-10-27] MEDS: Cyclobenzaprine 10 MG TAB, 3 TABS/BTL PO (17:47)
--- NOTE | 2024-10-27 22:41 | ED.GENADUL_ITS ---
Discharge Plan Disposition Patient Disposition: Home Discharge Details Clinical Impression: Compression fracture of body of thoracic vertebra, Compression fracture of lumbar vertebra Primary Care Provider: Sofía Brady ED Provider: Daina Johnson Home Meds and New Rx's Prescriptions: New cyclobenzaprine 5 mg tablet 5 mg PO QHS PRNQty: 15 0RF Continued cholecalciferol (vitamin D3) 25 mcg (1,000 unit) tablet 50 mcg PO DAILY Qty: 90 3RF acetaminophen [Acetaminophen Extra Strength] 500 mg tablet 1,000 mg PO BID PRN metoprolol succinate 50 mg tablet extended release 24 hr See Rx Instructions .ROUTE .COMPLEX Qty: 30 2RF Dose Instruction: TAKE ONE TABLET BY MOUTH EVERY DAY Rx Instructions: TAKE ONE TABLET BY MOUTH EVERY DAY lidocaine 4 % adhesive patch,medicated 1 patch topical DAILY PRNQty: 15 0RF Discharge Instructions Instructions: Vertebral Compression Fracture (DC) Additional Instructions: please follow-up with physical therapy take flexeril as prescribed at night, one hour before bedtime continue using your walker and light stretching take tylenol per pkg instructions during day talk to pain clinic about injection vs kyphoplasty follow up with the pain clinic, I have pushed your CT of thoracic and lumbar spine to [facility] Return should you develop changes, or should any new concerns arise Stand Alone Forms: Physical Therapy Referral Referrals: Sofía Brady APRN [Primary Care Provider] - 1 day HPI General Date/Time Provider Initiated Documentation: 10/27/24 15:07 . HPI Narrative: 64-year-old female with back pain, thoracic radiculopathy, multiple compression fractures, malignant neoplasm of the uterus, and generalized anxiety disorder, presenting with persistent back pain. Onset of current back pain was several weeks ago after going over a pothole. Evaluated in the emergency department and prescribed Lidoderm patches, which have not been effective. Has not followed up with primary care physician. Pain disrupts sleep, intensifies when turning at night. No changes in strength, sensation, bowel, or bladder function. No systemic symptoms such as fever or chills. Related Data Home Medications ?Medication ?Instructions ?Recorded ?Confirmed cholecalciferol (vitamin D3) 25 50 mcg (2 x 25 mcg (1,000 unit)) 05/19/2425 mcg (1,000 unit) tablet PO DAILY #90 tabs metoprolol succinate 50 mg See Rx Instructions .Route 08/17/24 10/27/24 tablet,extended release 24 hr .COMPLEX #30 tabs acetaminophen 500 mg tablet 1,000 mg PO BID PRN 08/29/24 10/27/24 (Acetaminophen Extra Strength) lidocaine 4 % topical patch 1 patch topical DAILY PRN #15 ea 10/17/24 10/27/24 cyclobenzaprine 5 mg tablet 5 mg PO QHS PRN #15 tabs 10/27/24 Previous Rx's ?Medication ?Instructions ?Recorded cholecalciferol (vitamin D3) 25 50 mcg (2 x 25 mcg (1,000 unit)) 05/19/24 mcg (1,000 unit) tablet PO DAILY #90 tabs metoprolol succinate 50 mg See Rx Instructions .Route 08/17/24 tablet,extended release 24 hr .COMPLEX #30 tabs lidocaine 4 % topical patch 1 patch topical DAILY PRN #15 ea 10/17/24 cyclobenzaprine 5 mg tablet 5 mg PO QHS PRN #15 tabs 10/27/24 Allergies Allergy/AdvReac Type Severity Reaction Status Date / Time albuterol Allergy Unknown Anxiety Verified 10/27/24 15:09 amoxicillin Allergy Unknown Itchiness, Verified 10/27/24 15:09 swelling aspirin Allergy Unknown Unknown Verified 10/27/24 15:09 azithromycin (From Zithromax) Allergy Unknown Itchiness Verified 10/27/24 15:09 calcitonin Allergy Unknown Dizziness/L Verified 10/27/24 15:09 ighthead ciprofloxacin Allergy Unknown Anxiety Verified 10/27/24 15:09 doxycycline Allergy Unknown Unknown Verified 10/27/24 15:09 hydrochlorothiazide Allergy Unknown Stomach Verified 10/27/24 15:09 pain ibuprofen Allergy Unknown Unknown Verified 10/27/24 15:09 metformin Allergy Unknown Unknown Verified 10/27/24 15:09 omeprazole Allergy Unknown Unknown Verified 10/27/24 15:09 pantoprazole Allergy Unknown Unknown Verified 10/27/24 15:09 paroxetine Allergy Unknown Unknown Verified 10/27/24 15:09 Penicillins Allergy Unknown Itchiness, Verified 10/27/24 15:09 swelling phenazopyridine (From Allergy Unknown Unknown Verified 10/27/24 15:09 Pyridium) polyethylene glycol 3350 Allergy Unknown Unknown Verified 10/27/24 15:09 (From Miralax) prednisone Allergy Unknown unknown Verified 10/27/24 15:09 sulfamethoxazole (From Allergy Unknown Unknown Verified 10/27/24 15:09 Bactrim) trimethoprim (From Bactrim) Allergy Unknown Unknown Verified 10/27/24 15:09 General Stated Complaint: Nk/Back Pain STELLA: 3 Exam Narrative Exam Narrative: General Appearance: Alert and oriented. Vital signs: Within normal limits. HEENT: Within normal limits. Respiratory: Lungs clear to auscultation. Cardiovascular: Distal pulses intact bilaterally. Back, Musculoskeletal: Exam difficult due to body habitus, but reproducible paraspinal and midline tenderness in thoracic and lumbar spine. Extremities: Strength and sensation intact distally. Skin: No evidence of bruising, deformity, or trauma. Neurological: Negative Babinski. Other observations: No evidence of trauma. Course Vital Signs Vital signs: Vital Signs Temperature 36.6 C 10/27/24 15:00 Pulse 93 H 10/27/24 15:00 Respiratory Rate 20 10/27/24 15:00 Blood Pressure 163/85 H 10/27/24 15:00 Pulse Oximetry 97 10/27/24 15:00 Temperature 36.6 C 10/27/24 15:00 Temperature Source Oral 10/27/24 15:00 Pulse 88 10/27/24 16:52 Respiratory Rate 18 10/27/24 16:52 Blood Pressure 158/74 H 10/27/24 16:52 Blood Pressure Position Supine 10/27/24 15:00 Pulse Oximetry 97 10/27/24 16:52 Oxygen Delivery Method Room Air 10/27/24 15:00 Oxygen Flow Rate 0 10/27/24 15:00 Pain Level 10 10/27/24 15:00 Medical Decision Making Initial Assessment: 64-year-old female with history of back pain, thoracic radiculopathy, multiple compression fractures, malignant neoplasm of uterus, generalized anxiety disorder, presents with persistent back pain after going over a pothole several weeks ago. Evaluated in emergency department, prescribed Lidoderm patches, which have not been effective. Difficulty sleeping due to pain exacerbated by movement. No changes in strength, sensation, bowel, or bladder function. No fever or chills. Alert and oriented with intact distal strength and sensation. Reproducible paraspinal and midline tenderness in thoracic and lumbar spine without bruising or deformity. Lungs clear, distal pulses intact. Negative Babinski. CT scan shows new and subacute thoracic and lumbar compression fractures. ED Course: - Reviewed patient's CT from last assessment showing new and subacute thoracic and lumbar compression fractures (10 minutes). - Prescription for Flexeril for sleep and pain management. - Referral for physical therapy. - Referral to pain specialist. Final Assessment: Persistent back pain following incident involving pothole several weeks ago. CT scan shows new and subacute thoracic and lumbar compression fractures. Prescription for Flexeril for sleep and pain management. Referral for physical therapy and follow-up with pain specialist provided. Clinical Impression: - Persistent back pain - Thoracic and lumbar compression fractures Disposition: - Discharge - Follow-Up: Referral for physical therapy and follow-up with pain specialist. Close outpatient follow-up with primary care physician encouraged. MDM Components Evaluation: - Number of Differential Diagnoses or Management Options: Persistent back pain, thoracic and lumbar compression fractures. - Amount and Complexity of Data Reviewed: CT scan reviewed. - Risk of Complication and Morbidity or Mortality: Moderate risk due to ongoing back pain and compression fractures. Quality:[facility] Health Related Social Needs: No Data to Display PFSH All Active Problems (Updated 10/27/24 @ 16:14 by JEANNIE Child) Compression fracture of lumbar vertebra (Acute) Compression fracture of body of thoracic vertebra (Acute) Thoracic radiculopathy (Acute) Back pain (Acute) Blood dyscrasia (Acute) Allergies (Acute) Knee pain, right (Acute) Hypertrophic toenail (Acute) [place] (Acute) left heel Trigger thumb, right thumb (Acute) Back pain (Acute) Rectal incontinence (Acute) Addressed at GI visit 08/02/2024 recommend adding fiber to diet, fiber supplement and/or Imodium, start dicyclomine as needed. Work with dietitian; soft well cooked vegetables, avoid raw vegetables and leafy greens. IBS (irritable bowel syndrome) (Chronic) Ovarian cyst, left (Acute) Diverticulosis (Acute) CTS (carpal tunnel syndrome) (Acute) Pain of right thumb (Acute) Compression fracture of L4 vertebra (Acute) See MRI dated 09/24/2022 Malignant neoplasm of uterus (Acute) Endometrial cancer treated with brachytherapy in 2019. 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 Normal pelvic CT in September 2023, plan is to follow-up in 6 months. In December 2024, 5 years will have passed since her diagnosis of endometrial cancer and the patient may proceed with routine [employer] care as necessary. Prediabetes (Acute) Obesity (Chronic) Unsteadiness on feet (Acute) Primary generalized (osteo)arthritis (Acute) Gastro-esophageal reflux disease without esophagitis (Acute) Essential (primary) hypertension (Acute) Combined forms of age-related cataract, bilateral (Acute) Essential tremor (Acute) Personal history of malignant neoplasm of other parts of uterus (Acute) Dorsalgia, unspecified (Acute) Major depressive disorder, recurrent severe without psychotic features (Acute) Weakness (Acute) Vitamin D deficiency (Acute) Unspecified hearing loss, unspecified ear (Acute) Anxiety disorder, unspecified (Acute) Generalized anxiety disorder (Acute) Other spondylosis, lumbar region (Acute) Carpal tunnel syndrome, right upper limb (Acute) 08/31/2019 for EMG; 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 11/30/2023 for carpal tunnel release surgery Asthma (Chronic) Unilateral primary osteoarthritis, right knee (Acute) 02/01/2023 orthopedic injection of [place]il[place] Anatomical narrow angle, bilateral (Acute) Obstructive sleep apnea (Chronic) Pain in right ankle and joints of right foot (Acute) Low back pain, unspecified (Acute) Adjustment disorder, unspecified (Chronic) Morbid obesity due to excess calories (Acute) Medical History (Updated 10/27/24 @ 16:14 by JEANNIE Child) Follow-up exam Small bowel obstruction Constipation, unspecified Surgical History History of tonsillectomy History of bunionectomy of left great toe H/O hernia repair History of colon surgery Colon rupture repair H/O section (1988) History of colonoscopy (2018) History of cholecystectomy (2019) H/O laser iridotomy (2021) Family History Mother Anxiety Diabetes Heart disease Paternal Grandfather Cancer Brother Depression Diabetes Cancer Maternal Grandmother Heart disease Social History Smoking/Tobacco Use Status: Never Second Hand Exposure: No Smoking risk assessment performed?: Yes Alcohol Intake: never Drug use: Never Substance use type: does not use Adopted: No Caregiver/Support person: No Foster care: No Household members: none Housing: apartment Number of Children: 2 number of grandchildren: 0 Communication Needs: Hard of Hearing and Corrective Lenses Education Level: college Do you need help understanding health information?: Often Pets and animals: No Sexually active: No Do you think of yourself as: straight/heterosexual Current gender identity: female What is your relationship status?: How often do you talk on the phone with friends or family?: three or more times per week How often do you get together with friends or relatives?: decline to answer Do you belong to any clubs or organized social groups?: decline to answer Panel score (0-1 are the most socially isolated patients): 1 What type of physical activity do you participate in: walking Duration: 30-45 minutes/day Frequency: daily Sharita/Anglican: Other Seatbelt use: always Helmet use: No Drive intox or ride w/intox class a regional truck driver: No Do you feel safe at home: Yes Do you feel safe in your relationship?: Yes
== END 2024-10-27 16:56 | disposition home or self-care (01) ==
PROVIDERS: Emergency Provider Physician Assistant; PCP Nurse Practitioner Family
DX: M54.16 Radiculopathy, lumbar region (principal); M48.54XA Collapsed vertebra, not elsewhere classified, thoracic region, initial encounter for fracture; M48.56XA Collapsed vertebra, not elsewhere classified, lumbar region, initial encounter for fracture
CPT/HCPCS: 99283

== ENCOUNTER → 2024-11-01 14:21 | Outpatient (BNVA) | payer MEDICARE, MEDICAID, SELFPAY | PROVIDERS: PCP Nurse Practitioner Family; Referring Provider Nurse Practitioner Family; Visit Provider Podiatrist | DX: B07.0 Plantar wart (principal); L60.2 Onychogryphosis; M79.672 Pain in left foot | CPT/HCPCS: 17110 ==

== ENCOUNTER 2024-11-13 12:03 | Outpatient (CLI) | payer MEDICARE, MEDICAID, SELFPAY ==
--- NOTE | 2024-11-13 | DI.RAD_ITS ---
Exam(s) XR CHEST 2V PA LATERAL EXAM: XR CHEST 2V PA LATERAL CLINICAL HISTORY: Wheezing x several months, R06.2, worse in the last 5-6 days, SOB. TECHNIQUE: 2D digital imaging was performed. COMPARISON: CT CT ABDOMEN PELVIS W from 05/29/2024 FINDINGS: 2 views: Heart size is upper normal. The mediastinum is not widened. There are no obvious confluent infiltrates. However, on the lateral view there is suggestion of poss ible layering pleural effusion posteriorly. There is a possibly that this finding may be related to the overlying abundant adipose tissue but cannot exclude posterior loculated pleural effusion. IMPRESSION: As above. Recommend follow-up CT scan. DATA REPOSITORY: RADIATION DOSE DELIVERED:
== END 2024-11-13 12:23 ==
LOC: DI 12:03
PROVIDERS: PCP Nurse Practitioner Family; Visit Provider Nurse Practitioner Family
DX: R06.2 Wheezing (principal)
CPT/HCPCS: 71046

== ENCOUNTER 2024-11-23 01:12 | Outpatient (CLI) | payer MEDICARE, MEDICAID, SELFPAY ==
--- NOTE | 2024-11-23 12:48 | DI.CT_ITS ---
Exam(s) CT CHEST WO EXAM: CT CHEST WO CLINICAL HISTORY: Pleural effusion, J90; f/u on CXR 11/13/24. TECHNIQUE: Imaging protocol: Axial computed tomography images were obtained and coronal and sagittal reformatted images were created and reviewed. Lung Computer Aided Detection (CAD) was utilized. COMPARISON: CT CT ABDOMEN PELVIS W from 05/29/2024 CR XR CHEST 2V PA LATERAL from 11/13/2024 FINDINGS: Tracheobronchial tree: Patent where visualized. No bronchiectasis is present. Pulmonary parenchyma: No consolidation or dominant measurable mass. No architectural distortion. Mediastinum and Gisela: No dominant adenopathy or fluid collection. The esophagus is unremarkable. Thyroid gland: Unremarkable. Pleura: No effusion or pneumothorax. Heart: The heart is not dilated. No coronary artery calcifications are seen. No pericardial effusion. There is calcification of the mitral annulus. Aorta: Thoracic aorta non-dilated. Atherosclerotic calcification is present. Upper abdomen: Unremarkable. Lymph nodes: Within normal limits. Soft tissues: Unremarkable. Bones:Within normal limits for the patient's age. Stable compression deformities of T12, L1 and L2. IMPRESSION: 1. No evidence of a pleural effusion. The finding on the chest x-ray appears to represent adipose ti ssue. 2. No acute pulmonary process. RADIATION DOSE DELIVERED: 612.18mGy.cm Total DLP 612.18mGy.cm Total DLP DATA REPOSITORY: All CT scans at this facility are submitted to the National Radiology Data Registry (NRDR) Dose Index Registry (DIR) with the [employer] (ACR). RADIATION OPTIMIZATION: All CT scans at this facility use at least one of these dose optimization te chniques: automated exposure control; mA and/or kV adjustment per patient size (includes targeted exa ms where dose is matched to clinical indication); or iterative reconstruction.
== END 2024-11-23 01:32 ==
LOC: DI 01:12
PROVIDERS: PCP Nurse Practitioner Family; Visit Provider Nurse Practitioner Family
DX: J90 Pleural effusion, not elsewhere classified (principal)
CPT/HCPCS: 71250

== ENCOUNTER 2024-12-06 00:28 | Outpatient (CLI) | payer MEDICARE, MEDICAID, SELFPAY ==
--- NOTE | 2024-12-06 14:51 | DI.RAD_ITS ---
Exam(s) XR KNEE RT 3V AP,LAT,RAMA EXAM: XR KNEE RT 3V AP,LAT,RAMA CLINICAL HISTORY: worsening R knee pain,unilateral primary oa,m17.11. TECHNIQUE: 2D digital imaging was performed. COMPARISON: No exams were available for comparison FINDINGS: 3 views No evidence of fracture or obvious joint effusion. There is [id number] narrowing of the medial compartment and marginal osteophytes seen off the inner and outer aspect of the medial femoral condyle. The lateral compartment appears preserved. There a re moderate degenerative changes in the patellofemoral compartment. Bone density age-appropriate. No osseous lesions. IMPRESSION: Advanced degenerative changes in the medial compartment. Moderate degenerative changes in the patell ofemoral compartment. Mild degenerative changes in the lateral compartment. No obvious knee joint effusion. DATA REPOSITORY: RADIATION DOSE DELIVERED:
== END 2024-12-06 00:48 ==
LOC: DI 00:28
PROVIDERS: PCP Nurse Practitioner Family; Visit Provider Nurse Practitioner Family
DX: M17.11 Unilateral primary osteoarthritis, right knee (principal)
CPT/HCPCS: 73562

== ENCOUNTER → 2024-12-13 13:35 | Outpatient (BNVA) | payer MEDICARE, MEDICAID, SELFPAY | PROVIDERS: PCP Nurse Practitioner Family; Referring Provider Nurse Practitioner Family; Visit Provider Podiatrist | DX: B07.0 Plantar wart (principal); L60.2 Onychogryphosis; M79.672 Pain in left foot | CPT/HCPCS: 17110 ==

== ENCOUNTER 2024-12-14 03:21 | Outpatient (CLI) | payer MEDICARE, MEDICAID, SELFPAY ==
[2024-12-14 08:49] LABS: Hemoglobin A1C 5.6 % (<5.7)
[2024-12-14 08:58] LABS: Anion Gap 3.2 mmol/L (3-11); BUN 14 mg/dL (7-18); CO2 30.8 mmol/L (21.0-32.0); CREATININE 0.8 mg/dL (0.55-1.02); Calcium 8.8 mg/dL (8.5-10.1); Chloride 102 mmol/L (98-107); Estimated GFR 81.21 (mL/min/1.73m2); Glucose 112 mg/dL (74-106); Potassium 4.1 mmol/L (3.5-5.1); Sodium 136 mmol/L (136-145)
--- NOTE | 2024-12-20 16:15 | TELEFU_ITS ---
Date of service: 12/20/24 Time of Service: 13:00 Nutrition Note NOTE: Follow up from our last visit 10/11/24. Did not discuss any weight changes or not today, however the importance of striving for weight loss as a strategy for managing/improving many of her chronic symptoms as well as decreasing the state of inflammation that accompanies significant levels of obesity (BMI last month >70). We focused more again on working towards tolerating more fiber in her diet (especially soluble) gradually and consistently by trying to follow a predictable diet most days. This was demonstrated with printout of 5-day sample menu that included FODMAP friendly foods with about 12 grams of fiber on average per day. Kathy reports a great experience with some new tenants in her building that she has started sharing and making community meals together. - gave examples like chicken and brocoli and chicken and biscuits, quesadilla. Kathy tells me she has some follow ups with gastroenterology and an august appt at [facility] for food and chemical testing. She states she received sleep apnea results and has a new CPAP on the way. Typical breakfast lately is rice krispies cereal with lacose fee milk with 95% dark ubaldo pieces and/or banana with pumpkin pie spice or shredded mini wheats. Lunch has lately been social lately with her tenant firends and varies - she tries to stay away from foods she knows she cannot do well with (corn for example) Dinner varies as well. Kathy voiced a couple times during the appointment, that she gets overwhelmed with food choices and just wants to know what she can have. Again I highlighted the subjectivity of it and that is why tracking what she eats with symptoms is important if she finds it difficult to stick to a more repeatable menu at first - one she knows she tolerates and can branch out from there. Suggest she take 2 weeks and treat things like a mini boot camp with her menus consistent and repetitive in a limited rotation (maybe 2-3 menus for each meal to cycle between). She feels like the sample menus help and will work at trying some consistency - plans to do some shopping january 09 towards the menus (another barrier to her goals is lower food budget and relying on SNAP for majority of groceries. We will connect at the beginning of January with a phone call and catchup and arrange another follow up if she desires. Time Spent in Nutritional Counseling and Treatment: 25 min
== END 2024-12-14 03:22 | disposition home or self-care (01) ==
LOC: LBO 03:21
PROVIDERS: PCP Nurse Practitioner Family; Visit Provider Nurse Practitioner Family
DX: I10 Essential (primary) hypertension (principal); R73.03 Prediabetes
CPT/HCPCS: 00123; 36415; 80048; 83036

== ENCOUNTER 2024-12-19 16:04 | Outpatient (CLI) | payer MEDICARE, MEDICAID, SELFPAY ==
[2024-12-19 16:41] LABS: Abs Immature Grans 0.02 10^3/uL (0.0-0.06); Absolute Basophil Count 0.02 10^3/uL (0.0-0.2); Absolute Lymphocyte Count 1.41 10^3/uL (1.2-3.4); Absolute Monocyte Count 0.53 10^3/uL (0.1-0.8); Absolute Neutrophil Count 3.74 10^3/uL (1.2-6.7); Basophils % 0.3 %; Eosinophils % 1.7 %; HCT 40.8 % (36.0-46.0); HGB 13.1 g/dL (11.2-15.7); Immature Grans % 0.3 %; Lymphocytes % 24.2 %; MCH 30.5 pg (27.0-33.0); MCHC 32.1 % (32.0-36.0); MCV 95 fL (80-95); MPV 9.2 fL (8.0-11.0); Monocytes % 9.1 %; Neutrophils % 64.4 %; Platelet Count 215 10^3/uL (130-400); RBC 4.29 10^6/uL (3.93-5.22); RDW 14.1 % (11.7-14.6); RDW-SD 49.1 fL; WBC 5.82 10^3/uL (4.4-10.8)
== END 2024-12-19 16:05 | disposition home or self-care (01) ==
LOC: LBO 16:05
PROVIDERS: PCP Nurse Practitioner Family; Visit Provider Emergency Medicine
DX: D64.9 Anemia, unspecified (principal)
CPT/HCPCS: 36415; 85025

== ENCOUNTER 2024-12-29 17:07 | Emergency (ER) | payer MEDICARE, MEDICAID, SELFPAY ==
[2024-12-29 16:54] VITALS: BP 144/77; PULSE 90; RESP 20; TEMP 36.6; O2SAT 94
--- NOTE | 2024-12-29 17:23 | W.ED.GENAD ---
Discharge Plan Disposition Patient Disposition: Home Condition: Stable Discharge Details Clinical Impression: Diarrhea, Abdominal pain Primary Care Provider: Sofía Brady ED Provider: Stefany Reyes Home Meds and New Rx's Prescriptions: Continued cholecalciferol (vitamin D3) 25 mcg (1,000 unit) tablet 50 mcg PO DAILY Qty: 90 3RF acetaminophen [Acetaminophen Extra Strength] 500 mg tablet 1,000 mg PO BID PRN albuterol sulfate 2.5 mg /3 mL (0.083 %) solution for nebulization 2.5 mg inhalation TID PRN Patient Comments: INHALE ONE VIAL VIA NEBULIZER THREE TIMES A DAY NEEDED FOR COUGH/WHEEZE/SHORTNESS OF BREATH albuterol sulfate 90 mcg/actuation HFA aerosol inhaler 2 puff inhalation Q4H PRN Patient Comments: INHALE TWO PUFFS BY MOUTH EVERY 4 HOURS NEEDED FOR COUGH/WHEEZE/SHORTNESS OF BREATH (DME) [facility] Spacer See Rx Instructions .ROUTE .MEDSUPPLY Qty: 1 Patient Comments: USE DIRECTED WITH ALBUTEROL INHALER Rx Instructions: As directed metoprolol succinate 50 mg tablet extended release 24 hr See Rx Instructions .ROUTE .COMPLEX Qty: 30 2RF Dose Instruction: TAKE ONE TABLET BY MOUTH EVERY DAY Rx Instructions: TAKE ONE TABLET BY MOUTH EVERY DAY lidocaine 4 % adhesive patch,medicated 1 patch topical DAILY PRNQty: 15 0RF cyclobenzaprine 5 mg tablet 5 mg PO QHS PRNQty: 15 0RF Patient Comments: has not used loperamide [Anti-Diarrheal (loperamide)] 2 mg capsule 2 mg PO Q6H PRN Discharge Instructions Instructions: Abdominal Pain, Adult ED, Diarrhea, Adult ED Additional Instructions: At this time the CT shows multiple small abdominal wall hernias without any obstruction or lack of blood flow. You also do have a left ovarian cyst. No evidence of bowel obstruction. Your labs are all largely within normal limits. *If you continue to have abdominal pain please follow-up with general surgery to discuss these abdominal wall hernias. No evidence of urinary tract infection. Please continue with a brat diet as long as you are having the diarrhea. Bananas rice apples toast. Stay away from anything fried fatty spicy or dairy. You may also drink small amounts of Gatorade while having the diarrhea. Zofran is an antinausea medication that was sent home with you sometimes this can help with the diarrhea and stomach cramps. Please take Tylenol or Ibuprofen with food every 4-6 hours as needed for pain and swelling. Follow up with primary care provider in 3-5 days. Return to ED sooner if any worsening or concerns. Thank you for allowing us to care for you today Referrals: Andrea Ansari MD [ [facility] STAFF PHYSICIAN, Surgery] - Return if symptoms worsen Referral Note: Abdominal wall hernias Clinical Impression: Abdominal pain Sofía Brady APRN [Primary Care Provider, Family Practice] - 1 week Discharge Data Discharge Date/Time-TO BE ENTERED AT DEPARTURE: 12/29/24 19:24 HPI General Mode of arrival: EMS. Date/Time Provider Initiated Documentation: 12/29/24 17:12. Limitations to Documentation: no limitations. Information obtained by: patient, RN notes reviewed and old records reviewed. HPI Narrative: 64-year-old female presents to the ER with a chief complaint of lower abdominal pain worse on the right lower quadrant which began approximately a week ago. Patient reports that on Wednesday she had some diarrhea and then on Wednesday made an egg which may have gone bad has had diarrhea and cramping since then with worsening right lower quadrant abdominal pain. She does have a history of a bowel obstruction, hernia repair and cholecystectomy. Other past medical history include obesity, uterine cancer, obstructive sleep apnea denies any vomiting, reports chills but no fever. Related Data Home Medications ?Medication ?Instructions ?Recorded ?Confirmed cholecalciferol (vitamin D3) 25 50 mcg (2 x 25 mcg (1,000 unit)) 05/19/24 12/29/24 mcg (1,000 unit) tablet PO DAILY #90 tabs acetaminophen 500 mg tablet 1,000 mg PO BID PRN 08/29/24 12/29/24 (Acetaminophen Extra Strength) lidocaine 4 % topical patch 1 patch topical DAILY PRN #15 ea 10/17/24 12/29/24 cyclobenzaprine 5 mg tablet 5 mg PO QHS PRN #15 tabs 10/27/24 12/29/24 metoprolol succinate 50 mg See Rx Instructions .Route 11/15/24 12/29/24 tablet,extended release 24 hr .COMPLEX #30 tabs albuterol sulfate 2.5 mg/3 mL 2.5 mg inhalation TID PRN 11/28/24 12/29/24 (0.083 %) solution for nebulization albuterol sulfate 90 mcg/actuation 2 puff inhalation Q4H PRN 11/28/24 12/29/24 aerosol inhaler inhalational spacing device #1 ea 11/28/24 12/29/24 (Raymond Ontiveros [facility] spacer) loperamide 2 mg capsule 2 mg PO Q6H PRN 12/29/24 12/29/24 (Anti-Diarrheal (loperamide)) Previous Rx's ?Medication ?Instructions ?Recorded cholecalciferol (vitamin D3) 25 50 mcg (2 x 25 mcg (1,000 unit)) 05/19/24 mcg (1,000 unit) tablet PO DAILY #90 tabs lidocaine 4 % topical patch 1 patch topical DAILY PRN #15 ea 10/17/24 cyclobenzaprine 5 mg tablet 5 mg PO QHS PRN #15 tabs 10/27/24 metoprolol succinate 50 mg See Rx Instructions .Route 11/15/24 tablet,extended release 24 hr .COMPLEX #30 tabs Allergies Allergy/AdvReac Type Severity Reaction Status Date / Time albuterol Allergy Unknown Anxiety Verified 12/29/24 18:19 amoxicillin Allergy Unknown Itchiness, Verified 12/29/24 18:19 swelling aspirin Allergy Unknown Unknown Verified 12/29/24 18:19 azithromycin (From Zithromax) Allergy Unknown Itchiness Verified 12/29/24 18:19 calcitonin Allergy Unknown Dizziness/L Verified 12/29/24 18:19 ighthead ciprofloxacin Allergy Unknown Anxiety Verified 12/29/24 18:19 doxycycline Allergy Unknown Unknown Verified 12/29/24 18:19 hydrochlorothiazide Allergy Unknown Stomach Verified 12/29/24 18:19 pain ibuprofen Allergy Unknown Unknown Verified 12/29/24 18:19 metformin Allergy Unknown Unknown Verified 12/29/24 18:19 omeprazole Allergy Unknown Unknown Verified 12/29/24 18:19 pantoprazole Allergy Unknown Unknown Verified 12/29/24 18:19 paroxetine Allergy Unknown Unknown Verified 12/29/24 18:19 Penicillins Allergy Unknown Itchiness, Verified 12/29/24 18:19 swelling phenazopyridine (From Allergy Unknown Unknown Verified 12/29/24 18:19 Pyridium) polyethylene glycol 3350 Allergy Unknown Unknown Verified 12/29/24 18:19 (From Miralax) prednisone Allergy Unknown unknown Verified 12/29/24 18:19 sulfamethoxazole (From Allergy Unknown Unknown Verified 12/29/24 18:19 Bactrim) trimethoprim (From Bactrim) Allergy Unknown Unknown Verified 12/29/24 18:19 General Stated Complaint: Abd Prob STELLA: 3 Review of Systems All systems reviewed & are unremarkable except as noted in HPI and below Gastrointestinal Gastrointestinal: Reports abdominal pain, Reports diarrhea and Reports nausea Exam Narrative Exam Narrative: Constitutional: Alert and oriented x3. Appears stated age. Obese body habitus with a large habitus. Head: Normocephalic, no trauma. Eyes: Pupils PERRL, Red reflex noted, EOM's intact. Eyelids symmetrical without lesions, discharge, or swelling. ENT: Bilateral TM's WNL, External ear normal to inspection, no mastoid TTP, swelling, or erythema, Nasal turbinates WNL, no nasal discharge. Normal dentition, Posterior pharynx WNL, no exudate. Chest: RRR, Normal S1, S2, distal pulses intact. Resp: Lungs clear to auscultation bilaterally, no wheezes, rales, or rhonchi. Abdomen: Soft, non-distended, Normoactive bowel sounds all 4 quads. Palpable hernias noted to mid lower abdomen. Musculoskeletal: Unable to assess gait, moves all 4 extremities without difficulty. Skin: No suspicious rashes or lesions. Capillary refill less than 2 sec. Neurologic: Cranial nerves II-XII intact. Alert and oriented x 3. Motor: No deficits noted. Sensory: Intact bilaterally all 4 extremities. Hematologic/Lymphatic: No ecchymosis, no lymphadenopathy. Course Vital Signs Vital signs: Vital Signs Temperature 36.6 C 12/29/24 16:54 Pulse 90 12/29/24 16:54 Respiratory Rate 12/29/24 16:54 Blood Pressure 144/77 H 12/29/24 16:54 Pulse Oximetry 94 12/29/24 16:54 Temperature 36.6 C 12/29/24 16:54 Temperature Source Oral 12/29/24 16:54 Pulse 90 12/29/24 16:54 Respiratory Rate 12/29/24 16:54 Blood Pressure 144/77 H 12/29/24 16:54 Pulse Oximetry 94 12/29/24 16:54 Oxygen Delivery Method Room Air 12/29/24 16:54 Oxygen Flow Rate 0 12/29/24 16:54 Pain Level 7 12/29/24 16:54 Medical Decision Making 64-year-old female presents to the ER with a chief complaint of lower abdominal pain worse on the right lower quadrant which began approximately a week ago. Patient reports that on Wednesday she had some diarrhea and then on Wednesday made an egg which may have gone bad has had diarrhea and cramping since then with worsening right lower quadrant abdominal pain. She does have a history of a bowel obstruction, hernia repair and cholecystectomy. Other past medical history include obesity, uterine cancer, obstructive sleep apnea denies any vomiting, reports chills but no fever. Workup ordered including CBC CMP lipase urinalysis CT abdomen pelvis Zofran and 2 mg of morphine Patient declined the Zofran and morphine and is requesting p.o. Tylenol. This was ordered. CBC shows no leukocytosis, CMP within normal limits. Patient has not supplied urinalysis thus far. CT abdomen pelvis shows no evidence for bowel obstruction, there is anterior abdominal wall hernias containing small bowel loops however there is no evidence of incarceration or obstruction there is also some left ovarian cyst. Will discuss findings with patient send her home with some dissolvable oral Zofran and discussed on a brat diet including bananas rice apples toast. Patient verbalized understanding. This text was generated using [employer] dictation system, please disregard any oddities of phrase or misspellings. Medical Records Medical records reviewed: Yes I reviewed the patient's medical records. Imaging Data Radiologic Study: Imaging: CT Scan Radiologist's impression: FINDINGS: ABDOMEN: Lung Bases: No acute abnormality. Liver: Normal density. No measurable mass. Portal, Superior Mesenteric, and Splenic Veins: Unremarkable. Gallbladder and Biliary Tract: The gallbladder is absent. No significant biliary ductal dilatation is present. Pancreas: Normal density, no abnormal calcifications or inflammatory process. Spleen: Normal. Adrenals: No masses seen. Kidneys: Normal size, contour and axis. No radiodense stones or obstructive uropathy. No masses seen. Abdominal Aorta: Abdominal portion non-dilated. Atherosclerotic calcification is present. Bowel: No obstruction or bowel wall thickening. The appendix is absent. There is a large pannus containing portions of the small bowel and transverse colon. In addition, there are small anterior abdominal wall hernias containing loops of small bowel. No evidence of incarceration or obstruction of the bowel is seen. Peritoneal Cavity: No ascites, collection or mesenteric inflammatory response. No free air. Lymph Nodes: Within normal limits. Bones: Within normal limits for the patient's age. Soft Tissues: Please see above under bowel. PELVIS: Bladder: Symmetric distention, no gross wall thickening. Reproductive Organs: There are left ovarian cysts. The largest measures 4.9 x 3.7 cm (series 8, image 74). There is also 3.7 x 3.5 cm left ovarian cyst. Portions of the uterus and ovaries extend into the patient's pannus. Lymph Nodes: Within normal limits. Bones: Within normal limits for the patient's age. IMPRESSION: 1. No acute abdominal or pelvic process. 2. No evidence of bowel obstruction. 3. There is a large pannus. There is also anterior abdominal wall hernia containing small bowel loops. The bowel shows no evidence of incarceration or obstruction. 4. Left ovarian cysts. The largest measures 4.9 x 3.7 cm Lab Data Labs: Laboratory Tests Range/Units 12/29/24 17:25 WBC (4.4-10.8) 10^3/uL 5.78 RBC (3.93-5.22) 10^6/uL 4.72 Hgb (11.2-15.7) g/dL 14.3 Hct (36.0-46.0) % 44.1 MCV (80-95) fL 93 MCH (27.0-33.0) pg 30.3 MCHC (32.0-36.0) % 32.4 RDW (11.7-14.6) % 13.7 Plt Count (130-400) 10^3/uL 212 MPV (8.0-11.0) fL 9.2 Immature Gran % % 0.3 Neutrophils % % 71.1 Lymphocytes % % 19.4 Monocytes % % 8.1 Eosinophils % % 0.9 Basophils % % 0.2 Nucleated RBC % (0.0-0.3) % 0.0 Absolute Neutrophils (1.2-6.7) 10^3/uL 4.11 Absolute Lymphocytes (1.2-3.4) 10^3/uL 1.12 L Absolute Monocytes (0.1-0.8) 10^3/uL 0.47 Absolute Eosinophils (0.0-0.7) 10^3/uL 0.05 Absolute Basophils (0.0-0.2) 10^3/uL 0.01 Sodium (136-145) mmol/L 136 Potassium (3.5-5.1) mmol/L 4.9 Chloride (98-107) mmol/L 99 Carbon Dioxide (21.0-32.0) mmol/L 30.1 Anion Gap (3-11) mmol/L 6.9 BUN (7-18) mg/dL 12 Creatinine (0.55-1.02) mg/dL 0.9 Est GFR (CKD-EPI 2020) (mL/min/1.73m2) 70.51 Glucose (74-106) mg/dL 103 Calcium (8.5-10.1) mg/dL 9.1 Magnesium (1.8-2.4) mg/dL 2.2 Total Bilirubin (0.2-1.0) mg/dL 0.9 AST (15-37) U/L 26 ALT (14-59) U/L 27 Alkaline Phosphatase (46-116) U/L 60 Total Protein (6.4-8.2) g/dL 8.2 Albumin (3.4-5.0) g/dL 3.6 Lipase (<78) U/L 17 PFSH All Active Problems (Updated 12/29/24 @ 19:09 by Stefany Reyes NP) Abdominal pain (Acute) Diarrhea (Acute) Long toenail (Acute) Plantar verruca (Acute) Thoracic radiculopathy (Acute) Blood dyscrasia (Acute) Allergies (Acute) Knee pain, right (Acute) Hypertrophic toenail (Acute) [place] (Acute) left heel Trigger thumb, right thumb (Acute) Back pain (Acute) Rectal incontinence (Acute) Addressed at GI visit 08/02/2024 recommend adding fiber to diet, fiber supplement and/or Imodium, start dicyclomine as needed. Work with dietitian; soft well cooked vegetables, avoid raw vegetables and leafy greens. IBS (irritable bowel syndrome) (Chronic) Ovarian cyst, left (Acute) Diverticulosis (Acute) CTS (carpal tunnel syndrome) (Acute) Pain of right thumb (Acute) Compression fracture of L4 vertebra (Acute) See MRI dated 09/24/2022 Malignant neoplasm of uterus (Acute) Endometrial cancer treated with brachytherapy in 2019. According to LAYOUT TECHNICIAN note 12/22/2023 no subsequent vaginal bleeding or symptoms recurrent. Normal pelvic CT in September 2023, plan is to follow-up in 6 months. 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 Prediabetes (Acute) Obesity (Chronic) Unsteadiness on feet (Acute) Primary generalized (osteo)arthritis (Acute) Gastro-esophageal reflux disease without esophagitis (Acute) Essential (primary) hypertension (Acute) Combined forms of age-related cataract, bilateral (Acute) Essential tremor (Acute) Personal history of malignant neoplasm of other parts of uterus (Acute) Dorsalgia, unspecified (Acute) Major depressive disorder, recurrent severe without psychotic features (Acute) Weakness (Acute) Vitamin D deficiency (Acute) Unspecified hearing loss, unspecified ear (Acute) Anxiety disorder, unspecified (Acute) Generalized anxiety disorder (Acute) Other spondylosis, lumbar region (Acute) Carpal tunnel syndrome, right upper limb (Acute) 08/31/2019 for EMG; 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 11/30/2023 for carpal tunnel release surgery Asthma (Chronic) Unilateral primary osteoarthritis, right knee (Acute) 02/01/2023 orthopedic injection of Zilretta Anatomical narrow angle, bilateral (Acute) Obstructive sleep apnea (Chronic) Pain in right ankle and joints of right foot (Acute) Low back pain, unspecified (Acute) Adjustment disorder, unspecified (Chronic) Morbid obesity due to excess calories (Acute) Medical History Follow-up exam Small bowel obstruction Constipation, unspecified Surgical History History of tonsillectomy History of bunionectomy of left great toe H/O hernia repair History of colon surgery Colon rupture repair H/O section (1988) History of colonoscopy (2018) History of cholecystectomy (2019) H/O laser iridotomy (2021) Family History Mother Anxiety Diabetes Heart disease Paternal Grandfather Cancer Brother Depression Diabetes Cancer Maternal Grandmother Heart disease Social History Smoking/Tobacco Use Status: Never Second Hand Exposure: No Smoking risk assessment performed?: Yes Alcohol Intake: never Drug use: Never Substance use type: does not use Adopted: No Caregiver/Support person: No Foster care: No Household members: none Housing: apartment Number of Children: 2 number of grandchildren: 0 Communication Needs: Hard of Hearing and Corrective Lenses Education Level: college Do you need help understanding health information?: Often Pets and animals: No Sexually active: No Do you think of yourself as: straight/heterosexual Current gender identity: female What is your relationship status?: How often do you talk on the phone with friends or family?: three or more times per week How often do you get together with friends or relatives?: decline to answer Do you belong to any clubs or organized social groups?: decline to answer Panel score (0-1 are the most socially isolated patients): 1 What type of physical activity do you participate in: walking Duration: 30-45 minutes/day Frequency: daily Sharita/Confucianism: Other Seatbelt use: always Helmet use: No Drive intox or ride w/intox 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
[2024-12-29 17:37] LABS: Abs Immature Grans 0.02 10^3/uL (0.0-0.06); Absolute Basophil Count 0.01 10^3/uL (0.0-0.2); Absolute Eosinophil Count 0.05 10^3/uL (0.0-0.7); Absolute Lymphocyte Count 1.12 10^3/uL (1.2-3.4); Absolute Monocyte Count 0.47 10^3/uL (0.1-0.8); Absolute Neutrophil Count 4.11 10^3/uL (1.2-6.7); Basophils % 0.2 %; Eosinophils % 0.9 %; HCT 44.1 % (36.0-46.0); HGB 14.3 g/dL (11.2-15.7); Immature Grans % 0.3 %; Lymphocytes % 19.4 %; MCH 30.3 pg (27.0-33.0); MCHC 32.4 % (32.0-36.0); MCV 93 fL (80-95); MPV 9.2 fL (8.0-11.0); Monocytes % 8.1 %; Neutrophils % 71.1 %; Platelet Count 212 10^3/uL (130-400); RBC 4.72 10^6/uL (3.93-5.22); RDW 13.7 % (11.7-14.6); RDW-SD 47.4 fL; WBC 5.78 10^3/uL (4.4-10.8)
[2024-12-29] MEDS: Acetaminophen 500 MG TAB PO (17:39)
[2024-12-29 17:53] LABS: ALT 27 U/L (14-59); AST 26 U/L (15-37); Albumin 3.6 g/dL (3.4-5.0); Alkaline Phosphatase 60 U/L (46-116); Anion Gap 6.9 mmol/L (3-11); BUN 12 mg/dL (7-18); Bilirubin, Total 0.9 mg/dL (0.2-1.0); CO2 30.1 mmol/L (21.0-32.0); CREATININE 0.9 mg/dL (0.55-1.02); Calcium 9.1 mg/dL (8.5-10.1); Chloride 99 mmol/L (98-107); Estimated GFR 70.51 (mL/min/1.73m2); Glucose 103 mg/dL (74-106); Lipase 17 U/L (<78); Magnesium 2.2 mg/dL (1.8-2.4); Potassium 4.9 mmol/L (3.5-5.1); Sodium 136 mmol/L (136-145); Total Protein 8.2 g/dL (6.4-8.2)
[2024-12-29] MEDS: Normal Saline - Diluent 50 ML VIAL IJ (18:20)
[2024-12-29] MEDS: Omnipaque 350 MG/ML 100 ML BTL IJ (18:20)
[2024-12-29 18:21] VITALS: BP 144/77; PULSE 90; RESP 20; TEMP 36.6; O2SAT 94
--- NOTE | 2024-12-29 18:30 | DI.CT_ITS ---
Exam(s) CT ABDOMEN PELVIS W EXAM: CT ABDOMEN PELVIS W CLINICAL HISTORY: Abdominal pain, Diarrhea TECHNIQUE: Imaging Protocol: Axial computed tomography images with coronal and sagittal reformatted images were created and reviewed. CONTRAST MATERIAL: Intravenous: Omnipaque 350 Contrast volume:100 mL Oral: No COMPARISON: CT CT ABDOMEN PELVIS W from 05/29/2024 FINDINGS: ABDOMEN: Lung Bases: No acute abnormality. Liver: Normal density. No measurable mass. Portal, Superior Mesenteric, and Splenic Veins: Unremarkable. Gallbladder and Biliary Tract: The gallbladder is absent. No significant biliary ductal dilatation is present. Pancreas: Normal density, no abnormal calcifications or inflammatory process. Spleen: Normal. Adrenals: No masses seen. Kidneys: Normal size, contour and axis. No radiodense stones or obstructive uropathy. No masses seen. Abdominal Aorta: Abdominal portion non-dilated. Atherosclerotic calcification is present. Bowel: No obstruction or bowel wall thickening. The appendix is absent. There is a large pannus containing portions of the small bowel and transverse colon. In addition, there are small anterior abdominal wall hernias containing loops of small bowel. No evidence of incarceration or obstruction of the bowel is seen. Peritoneal Cavity: No ascites, collection or mesenteric inflammatory response. No free air. Lymph Nodes: Within normal limits. Bones: Within normal limits for the patient's age. Soft Tissues: Please see above under bowel. PELVIS: Bladder: Symmetric distention, no gross wall thickening. Reproductive Organs: There are left ovarian cysts. The largest measures 4.9 x 3.7 cm (series 8, image 74). There is also 3.7 x 3.5 cm left ovarian cyst. Portions of the uterus and ovaries extend into the patient's pannus. Lymph Nodes: Within normal limits. Bones: Within normal limits for the patient's age. IMPRESSION: 1. No acute abdominal or pelvic process. 2. No evidence of bowel obstruction. 3. There is a large pannus. There is also anterior abdominal wall hernia containing small bowel loops. The bowel shows no evidence of incarceration or obstruction. 4. Left ovarian cysts. The largest measures 4.9 x 3.7 cm. RADIATION DOSE DELIVERED: 3,698.71mGy.cm Total DLP DATA REPOSITORY: All CT scans at this facility are submitted to the National Radiology Data Registry (NRDR) Dose Index Registry (DIR) with the [employer] (ACR). RADIATION OPTIMIZATION: All CT scans at this facility use at least one of these dose optimization techniques: automated exposure control; mA and/or kV adjustment per patient size (includes targeted exams where dose is matched to clinical indication); or iterative reconstruction.
[2024-12-29 19:05] LABS: Bilirubin Negative (Negative); Blood Small (Negative); Clarity Clear (Clear); Glucose Negative (Negative); Ketones Negative (Negative); Leukocyte Esterase Negative (Negative); Nitrite Negative (Negative); Specific Gravity <= 1.005 (1.005-1.025); Urobilinogen 0.2 mg/dL (Up to 0.2); pH 5.5 (5-8)
[2024-12-29 19:14] LABS: Bacteria Few HPF (Negative); C & S Indicated? No; Casts Negative LPF (Negative); Crystals Negative HPF (Negative); Epithelial Cells Moderate HPF (Negative); Mucus Trace (Negative)
[2024-12-29] MEDS: Ondansetron O.D.T. 4 MG TABEF, 3 TABS/BTL PO (19:24)
== END 2024-12-29 19:24 | disposition home or self-care (01) ==
LOC: ER 19:23
PROVIDERS: Emergency Provider Registered Nurse Emergency; PCP Nurse Practitioner Family
DX: R10.32 Left lower quadrant pain (principal); R19.7 Diarrhea, unspecified; K43.9 Ventral hernia without obstruction or gangrene; N83.202 Unspecified ovarian cyst, left side
CPT/HCPCS: 36415; 80053; 83690; 99285; 74177; 81003; 81015; 83735; 85025; 99284; J3490

== ENCOUNTER → 2025-01-31 14:19 | Outpatient (BNVA) | payer MEDICARE, MEDICAID, SELFPAY | PROVIDERS: PCP Nurse Practitioner Family; Referring Provider Nurse Practitioner Family; Visit Provider Podiatrist | DX: B07.0 Plantar wart (principal); M79.674 Pain in right toe(s); M79.675 Pain in left toe(s); L60.2 Onychogryphosis; E53.8 Deficiency of other specified B group vitamins; E66.9 Obesity, unspecified | CPT/HCPCS: 17110 ==

== ENCOUNTER 2025-02-18 22:59 | Emergency (ER) | payer MEDICARE, MEDICAID, SELFPAY ==
[2025-02-18 23:02] VITALS: BP 151/50; PULSE 100; RESP 18; TEMP 37.4; O2SAT 100
--- NOTE | 2025-02-18 23:18 | W.ED.GENAD ---
Discharge Plan Disposition Patient Disposition: Home Condition: Good Discharge Details Clinical Impression: Chronic back pain Primary Care Provider: Sofía Brady ED Provider: Ollie Das Home Meds and New Rx's Prescriptions: No Action cholecalciferol (vitamin D3) 25 mcg (1,000 unit) tablet 50 mcg PO DAILY Qty: 90 3RF acetaminophen [Acetaminophen Extra Strength] 500 mg tablet 1,000 mg PO BID PRN albuterol sulfate 2.5 mg /3 mL (0.083 %) solution for nebulization 2.5 mg inhalation TID PRN Patient Comments: INHALE ONE VIAL VIA NEBULIZER THREE TIMES A DAY NEEDED FOR COUGH/WHEEZE/SHORTNESS OF BREATH albuterol sulfate 90 mcg/actuation HFA aerosol inhaler 2 puff inhalation Q4H PRN Patient Comments: INHALE TWO PUFFS BY MOUTH EVERY 4 HOURS NEEDED FOR COUGH/WHEEZE/SHORTNESS OF BREATH (DME) Raymond Rama [facility] Spacer See Rx Instructions .ROUTE .MEDSUPPLY Qty: 1 Patient Comments: USE DIRECTED WITH ALBUTEROL INHALER Rx Instructions: As directed dicyclomine 10 mg capsule PO TID PRN Patient Comments: TAKE ONE CAPSULE BY MOUTH THREE TIMES A DAY NEEDED FOR PAIN metoprolol succinate 50 mg tablet extended release 24 hr See Rx Instructions .ROUTE .COMPLEX Qty: 90 2RF Dose Instruction: TAKE ONE TABLET BY MOUTH EVERY DAY Rx Instructions: TAKE ONE TABLET BY MOUTH EVERY DAY lidocaine 4 % adhesive patch,medicated 1 patch topical DAILY PRNQty: 15 0RF cyclobenzaprine 5 mg tablet 5 mg PO QHS PRNQty: 15 0RF Patient Comments: has not used loperamide [Anti-Diarrheal (loperamide)] 2 mg capsule 2 mg PO Q6H PRN Discharge Instructions Instructions: Chronic pain Additional Instructions: At this time your signs and symptoms are clinically consistent with a back sprain. This can cause significant pain and take a fair bit of time to heal as your chronic fracture is healed. I expect 1 to 2 months for potential resolution. In the meantime do not lift anything greater than 5 pounds for the next 2 weeks. Avoid any significant vigorous physical activity. Perform easy gentle regular activities at home without any significant bending or lifting. You have been given a prescription for Lidoderm patch. If your insurance does not cover this you can get [id number] Lidoderm patches at 4% which are almost just as effective. Please take the Flexeril as directed but do not take it when driving or operating any vehicles or heavy machinery, swimming, taking long baths, or operating firearms. Please use a heating pad as often as possible on your back. Perform daily gentle stretches on your back. Please continue to take the Tylenol and Motrin. You can take 1000 mg of Tylenol every 6 hours a. If you notice any worsening of your symptoms, or any new symptoms such as vomiting, diarrhea, fever, chills, shortness of breath, chest pain, numbness or tingling in your groin or legs, weakness in your legs, loss of control for your bowels or bladder, or fainting , please return immediately to the emergency department for reevaluation. Please follow up with your primary care provider as soon as possible for reassessment and reevaluation. As always, it was a pleasure participating in your medical care today. Referrals: Sofía Brady APRN [Primary Care Provider, Family Practice] [facility] General Date/Time Provider Initiated Documentation: 02/18/25 23:01. HPI Narrative: 64-year-old female with back pain, thoracic radiculopathy, multiple compression fractures of the lumbar vert. / [facility] Spine referral, IBS, malignant neoplasm of the uterus, and generalized anxiety disorder, evaluation of erythropoietic Protoporphyria at [facility], who presents today for evaluation low back pain. Patient is currently receiving physical therapy. She has been doing well with the back pain, however tonight it seemed to get a little bit worse. She had been dropping a few objects and has been doing a significant amount of bending throughout the day which she feels might have exacerbated it. She has not been able to apply the Lidoderm patches because she has not been able to reach behind her secondary to her weight. She does have home health coming every day. Patient denies any saddle anesthesia, numbness or tingling in the groin, change in sensation when wiping. Patient denies any change in sensation during sexual intercourse, bowel or bladder incontinence, leakage, or retention. Patient denies any significant weakness in the lower extremities. Her symptoms are improved when she takes Tylenol, however tonight she was concerne about her back pain, felt anxious, and then called 911 when she noticed that her heart rate was increasing as she became more anxious. Related Data Home Medications ?Medication ?Instructions ?Recorded ?Confirmed cholecalciferol (vitamin D3) 25 50 mcg (2 x 25 mcg (1,000 unit)) 05/19/24 02/18/25 mcg (1,000 unit) tablet PO DAILY #90 tabs acetaminophen 500 mg tablet 1,000 mg PO BID PRN 08/29/24 02/18/25 (Acetaminophen Extra Strength) lidocaine 4 % topical patch 1 patch topical DAILY PRN #15 ea 10/17/24 02/18/25 cyclobenzaprine 5 mg tablet 5 mg PO QHS PRN #15 tabs 10/27/24 02/18/25 albuterol sulfate 2.5 mg/3 mL 2.5 mg inhalation TID PRN 11/28/24 02/18/25 (0.083 %) solution for nebulization albuterol sulfate 90 mcg/actuation 2 puff inhalation Q4H PRN 11/28/24 02/18/25 aerosol inhaler inhalational spacing device #1 ea 11/28/24 02/13/25 ([facility] R[facility] spacer) loperamide 2 mg capsule 2 mg PO Q6H PRN 12/29/24 02/18/25 (Anti-Diarrheal (loperamide)) dicyclomine 10 mg capsule mg PO TID PRN 02/13/25 02/13/25 metoprolol succinate 50 mg See Rx Instructions .Route 02/13/25 02/18/25 tablet,extended release 24 hr .COMPLEX #90 tabs Previous Rx's ?Medication ?Instructions ?Recorded cholecalciferol (vitamin D3) 25 50 mcg (2 x 25 mcg (1,000 unit)) 05/19/24 mcg (1,000 unit) tablet PO DAILY #90 tabs lidocaine 4 % topical patch 1 patch topical DAILY PRN #15 ea 10/17/24 cyclobenzaprine 5 mg tablet 5 mg PO QHS PRN #15 tabs 10/27/24 metoprolol succinate 50 mg See Rx Instructions .Route 02/13/25 tablet,extended release 24 hr .COMPLEX #90 tabs Allergies Allergy/AdvReac Type Severity Reaction Status Date / Time albuterol Allergy Unknown Anxiety Verified 02/18/25 23:18 amoxicillin Allergy Unknown Itchiness, Verified 02/18/25 23:18 swelling aspirin Allergy Unknown Unknown Verified 02/18/25 23:18 azithromycin (From Zithromax) Allergy Unknown Itchiness Verified 02/18/25 23:18 calcitonin Allergy Unknown Dizziness/L Verified 02/18/25 23:18 ighthead ciprofloxacin Allergy Unknown Anxiety Verified 02/18/25 23:18 doxycycline Allergy Unknown Unknown Verified 02/18/25 23:18 hydrochlorothiazide Allergy Unknown Stomach Verified 02/18/25 23:18 pain ibuprofen Allergy Unknown Unknown Verified 02/18/25 23:18 metformin Allergy Unknown Unknown Verified 02/18/25 23:18 omeprazole Allergy Unknown Unknown Verified 02/18/25 23:18 pantoprazole Allergy Unknown Unknown Verified 02/18/25 23:18 paroxetine Allergy Unknown Unknown Verified 02/18/25 23:18 Penicillins Allergy Unknown Itchiness, Verified 02/18/25 23:18 swelling phenazopyridine (From Allergy Unknown Unknown Verified 02/18/25 23:18 Pyridium) polyethylene glycol 3350 Allergy Unknown Unknown Verified 02/18/25 23:18 (From Miralax) prednisone Allergy Unknown unknown Verified 02/18/25 23:18 sulfamethoxazole (From Allergy Unknown Unknown Verified 02/18/25 23:18 Bactrim) trimethoprim (From Bactrim) Allergy Unknown Unknown Verified 02/18/25 23:18 gabapentin AdvReac Intermediate Dizziness/L Verified 02/18/25 23:18 ighthead General Stated Complaint: Orthopedic STELLA: 3 Exam Narrative Exam Narrative: 1.Const: Well-nourished, Well-developed, appearing stated age. 2.Eyes: PERRL, no conjunctival injection, and symmetrical lids. 3.ENT: Atraumatic external nose and ears. Moist MM. Neck: Symmetric, trachea midline, No thyromegaly. 4.CVS: +S1/S2, Peripheral pulses 2+ and equal in all extremities. Brisk capillary refill in all extremities. 5.RESP: Unlabored respiratory effort. Clear to auscultation bilaterally. No wheezes rales or rhonchi 6.GI: Soft, Nontender/Nondistended, No hepatosplenomegaly. No guarding or rebound. 7.MSK: Normocephalic/Atraumatic, Extremities w/o deformity or ttp No cyanosis or clubbing, Normal movement of all extremities. No significant midline tenderness to palpation over the CTLS spine. However she does have some mild right-sided paraspinal pain on palpation. Normal ROM in flexion, extension, side bend, and rotation. Patient has +5 out of 5 strength in the lower extremities in dorsiflexion and plantarflexion, knee flexion and extension, hip flexion and extension. Normal strength for dorsiflexion and plantar flexion of the great toe bilaterally. There is +2 over 2 dorsalis pedis pulses bilaterally. There is normal sensation to the skin with light touch at the foot, knee, and hip. Normal saddle sensation. Good sensation over the deep sural nerve area bilaterally. Rectal exam was deferred, but she does have excellent hector-rectal sensation. 8.Skin: Warm, Dry. No rashes or lesions. 9.Neuro: channel turner II-XII grossly intact. Sensation grossly intact, no focal neurologic deficits. 10.Psych: (AAO) x3. Appropriate mood and affect Course Vital Signs Vital signs: Vital Signs Temperature 37.4 C 02/18/25 23:02 Pulse 100 H 02/18/25 23:02 Respiratory Rate 18 02/18/25 23:02 Blood Pressure 151/50 H 02/18/25 23:02 Pulse Oximetry 100 02/18/25 23:02 Temperature 37.4 C 02/18/25 23:02 Pulse 100 H 02/18/25 23:02 Respiratory Rate 18 02/18/25 23:02 Blood Pressure 151/50 H 02/18/25 23:02 Pulse Oximetry 100 02/18/25 23:02 Oxygen Delivery Method Room Air 02/18/25 23:02 Oxygen Flow Rate 0 02/18/25 23:02 Pain Level 3 02/18/25 23:02 Medical Decision Making 64-year-old female with back pain, thoracic radiculopathy, multiple compression fractures of the lumbar vert. / [facility] Spine referral, IBS, malignant neoplasm of the uterus, and generalized anxiety disorder, evaluation of erythropoietic Protoporphyria at [facility], who presents today for evaluation low back pain. Patient is currently receiving physical therapy. She has been doing well with the back pain, however tonight it seemed to get a little bit worse. She had been dropping a few objects and has been doing a significant amount of bending throughout the day which she feels might have exacerbated it. She has not been able to apply the Lidoderm patches because she has not been able to reach behind her secondary to her weight. She does have home health coming every day. Patient denies any saddle anesthesia, numbness or tingling in the groin, change in sensation when wiping. Patient denies any change in sensation during sexual intercourse, bowel or bladder incontinence, leakage, or retention. Patient denies any significant weakness in the lower extremities. Her symptoms are improved when she takes Tylenol, however tonight she was concerne about her back pain, felt anxious, and then called 911 when she noticed that her heart rate was increasing as she became more anxious. Exam demonstrates well-appearing female, no midline tenderness or step-off sign. Mild right-sided paraspinal tenderness. Known vertebral body injuries are documented well with previous radiology findings. She has had no new falls or trauma, but has had significant bending which I do suspect has worsened some of her chronic pain. No red flags to suggest cauda equina syndrome, or significant cord compression. No significant anesthesia, or profound weakness. Symptoms appear consistent with musculoskeletal back strain secondary to increased movement, and known chronic fractures. She already does have appropriate spine follow-up, as well as physical therapy. I did offer steroids which she notably declined. I offered IM Toradol which she also notably declined. She does consent to a Lidoderm patch. We will give Voltaren gel for her caregiver to rub on every 4-6 hours. Recommend continued Tylenol at home. Otherwise patient stable for discharge. Because of her chronic spine fractures, challenges with sitting upright for prolonged time, we will have calyx bring her back as she would not be a good candidate for RCT. I have extensively reviewed the treatment plan and discharge instructions with the patient. I have addressed all patient concerns at this time. The patient was made aware of what symptoms to monitor for that would warrant a return to the emergency department. Discussed the plan with the patient, they demonstrate verbal understanding and agreement with our assessment and plan at this time. The documentation in this chart was dictated using [employer] dictation software. Please excuse any dictation errors. PFSH All Active Problems (Updated 02/18/25 @ 23:19 by Ollie Das DO) Chronic back pain (Acute) Abdominal hernia (Acute) 01/03/25 [facility] Gastro note Long toenail (Acute) Plantar verruca (Acute) Thoracic radiculopathy (Acute) Blood dyscrasia (Acute) Allergies (Acute) Knee pain, right (Acute) Hypertrophic toenail (Acute) [place] (Acute) left heel Trigger thumb, right thumb (Acute) Back pain (Acute) Rectal incontinence (Acute) Addressed at GI visit 08/02/2024 recommend adding fiber to diet, fiber supplement and/or Imodium, start dicyclomine as needed. Work with dietitian; soft well cooked vegetables, avoid raw vegetables and leafy greens. IBS (irritable bowel syndrome) (Chronic) Ovarian cyst, left (Acute) Diverticulosis (Acute) CTS (carpal tunnel syndrome) (Acute) Pain of right thumb (Acute) Compression fracture of L4 vertebra (Acute) See MRI dated 09/24/[address] 10/2024: 4 compression fractures Malignant neoplasm of uterus (Acute) Endometrial cancer treated with brachytherapy in 2019. According to [facility]PARATION C[facility] COORDINATOR note 12/22/2023 no subsequent vaginal bleeding or symptoms recurrent. Normal pelvic CT in September 2023, plan is to follow-up in 6 months. 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 Prediabetes (Acute) Obesity (Chronic) Unsteadiness on feet (Acute) Primary generalized (osteo)arthritis (Acute) Gastro-esophageal reflux disease without esophagitis (Acute) Essential (primary) hypertension (Acute) Combined forms of age-related cataract, bilateral (Acute) Essential tremor (Acute) Personal history of malignant neoplasm of other parts of uterus (Acute) Dorsalgia, unspecified (Acute) Major depressive disorder, recurrent severe without psychotic features (Acute) Weakness (Acute) Vitamin D deficiency (Acute) Unspecified hearing loss, unspecified ear (Acute) Anxiety disorder, unspecified (Acute) Generalized anxiety disorder (Acute) Other spondylosis, lumbar region (Acute) Carpal tunnel syndrome, right upper limb (Acute) 08/31/2019 for EMG; 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 11/30/2023 for carpal tunnel release surgery Asthma (Chronic) Unilateral primary osteoarthritis, right knee (Acute) 02/01/2023 orthopedic injection of Zil[place] Anatomical narrow angle, bilateral (Acute) Obstructive sleep apnea (Chronic) Pain in right ankle and joints of right foot (Acute) Low back pain, unspecified (Acute) Adjustment disorder, unspecified (Chronic) Morbid obesity due to excess calories (Acute) Medical History Follow-up exam Small bowel obstruction Constipation, unspecified Surgical History History of tonsillectomy History of bunionectomy of left great toe H/O hernia repair History of colon surgery Colon rupture repair H/O section (1988) History of colonoscopy (2018) History of cholecystectomy (2019) H/O laser iridotomy (2021) Family History Mother Anxiety Diabetes Heart disease Paternal Grandfather Cancer Brother Depression Diabetes Cancer Maternal Grandmother Heart disease Social History Smoking/Tobacco Use Status: Never Second Hand Exposure: No Smoking risk assessment performed?: Yes Alcohol Intake: never Drug use: Never Substance use type: does not use Adopted: No Caregiver/Support person: No Foster care: No Household members: none Housing: apartment Number of Children: 2 number of grandchildren: 0 Communication Needs: Hard of Hearing and Corrective Lenses Education Level: college Do you need help understanding health information?: Often Pets and animals: No Sexually active: No Do you think of yourself as: straight/heterosexual Current gender identity: female What is your relationship status?: How often do you talk on the phone with friends or family?: three or more times per week How often do you get together with friends or relatives?: decline to answer Do you belong to any clubs or organized social groups?: decline to answer Panel score (0-1 are the most socially isolated patients): 1 What type of physical activity do you participate in: walking Duration: 30-45 minutes/day Frequency: daily Sharita/Jain: Other Seatbelt use: always Helmet use: No Drive intox or ride w/intox port cdl a driver: No Do you feel safe at home: Yes Do you feel safe in your relationship?: Yes
[2025-02-18] MEDS: Diclofenac 1% Gel 100 GM TUBE TP (23:23)
[2025-02-18] MEDS: Lidocaine 5% Patch 1 PATCH TP (23:24)
[2025-02-18] MEDS: Cyclobenzaprine 10 MG TAB PO (23:30)
[2025-02-18 23:39] VITALS: PULSE 90; RESP 18; O2SAT 98
== END 2025-02-18 23:41 | disposition home or self-care (01) ==
PROVIDERS: Emergency Provider Student in an Organized Health Care Education/Training Program; PCP Nurse Practitioner Family
DX: M54.50 Low back pain, unspecified (principal); M54.14 Radiculopathy, thoracic region
CPT/HCPCS: 99283 ×2

== ENCOUNTER 2025-02-23 21:02 | Emergency (ER) | payer MEDICARE, MEDICAID, SELFPAY ==
[2025-02-23 21:01] VITALS: BP 165/73; PULSE 94; RESP 16; TEMP 36.6; O2SAT 98
[2025-02-23 21:08] VITALS: BP 165/73; PULSE 94; RESP 16; TEMP 36.6; O2SAT 98
--- NOTE | 2025-02-23 21:15 | DI.RAD_ITS ---
Exam(s) XR CHEST 2V PA LATERAL EXAM: XR CHEST 2V PA LATERAL CLINICAL HISTORY: Chest pain TECHNIQUE: 2D digital imaging was performed. Two views. COMPARISON: CT CT CHEST WO from 11/23/2024 FINDINGS: Exam is limited by under penetration and patient positioning. HEART: Normal size. Aorta: Not dilated. PULMONARY VASCULATURE: Normal. MEDIASTINUM: Unremarkable. LUNGS: Limited evaluation. No gross area of consolidation visible on the AP view. Lateral view is extremely limited. Basilar infiltrates are not excluded. PLEURAL SPACE: No pleural effusion or pneumothorax. BONE:Unremarkable for age. SOFT TISSUES: Unremarkable. IMPRESSION: Extremely limited exam. No no gross evidence an acute abnormality. The preliminary [facility] report was reviewed. DATA REPOSITORY: RADIATION DOSE DELIVERED:
--- NOTE | 2025-02-23 21:15 | RT.EKG_ITS ---
APPROVED REPORT Exam: Resting ECG Reason for Exam: Chest pain Patient Location: E HR:89 bpm ECG Measurements Heart Rate 89 AXIS MT 184 P 68 QRSd 87 QRS -2 QT 355 T 0 QTc 432 Conclusion Sinus rhythm, rate 89 No interval abnormalities No STEMI Q wave and T wave inversion lead III, no priors available for comparison
[2025-02-23 21:43] LABS: Abs Immature Grans 0.01 10^3/uL (0.0-0.06); HCT 41.4 % (36.0-46.0); HGB 13.3 g/dL (11.2-15.7); Immature Grans % 0.2 %; MCH 30.1 pg (27.0-33.0); MCHC 32.1 % (32.0-36.0); MCV 94 fL (80-95); MPV 9.0 fL (8.0-11.0); Platelet Count 200 10^3/uL (130-400); RBC 4.42 10^6/uL (3.93-5.22); RDW 13.4 % (11.7-14.6); RDW-SD 46.2 fL; WBC 5.79 10^3/uL (4.4-10.8)
--- NOTE | 2025-02-23 21:45 | ED.GENADUL_ITS ---
Discharge Plan Disposition Patient Disposition: Home Condition: Stable Discharge Details Clinical Impression: Chest pain, Increased sensitivity of smell Primary Care Provider: Sofía Brady ED Provider: Alysha Arredondo Home Meds and New Rx's Prescriptions: No Action cholecalciferol (vitamin D3) 25 mcg (1,000 unit) tablet 50 mcg PO DAILY Qty: 90 3RF acetaminophen [Acetaminophen Extra Strength] 500 mg tablet 1,000 mg PO BID PRN albuterol sulfate 2.5 mg /3 mL (0.083 %) solution for nebulization 2.5 mg inhalation TID PRN Patient Comments: INHALE ONE VIAL VIA NEBULIZER THREE TIMES A DAY NEEDED FOR COUGH/WHEEZE/SHORTNESS OF BREATH albuterol sulfate 90 mcg/actuation HFA aerosol inhaler 2 puff inhalation Q4H PRN Patient Comments: INHALE TWO PUFFS BY MOUTH EVERY 4 HOURS NEEDED FOR COUGH/WHEEZE/SHORTNESS OF BREATH (DME) [facility] Spacer See Rx Instructions .ROUTE .MEDSUPPLY Qty: 1 Patient Comments: USE DIRECTED WITH ALBUTEROL INHALER Rx Instructions: As directed dicyclomine 10 mg capsule PO TID PRN Patient Comments: TAKE ONE CAPSULE BY MOUTH THREE TIMES A DAY NEEDED FOR PAIN metoprolol succinate 50 mg tablet extended release 24 hr See Rx Instructions .ROUTE .COMPLEX Qty: 90 2RF Dose Instruction: TAKE ONE TABLET BY MOUTH EVERY DAY Rx Instructions: TAKE ONE TABLET BY MOUTH EVERY DAY lidocaine 4 % adhesive patch,medicated 1 patch topical DAILY PRNQty: 15 0RF cyclobenzaprine 5 mg tablet 5 mg PO QHS PRNQty: 15 0RF Patient Comments: has not used loperamide [Anti-Diarrheal (loperamide)] 2 mg capsule 2 mg PO Q6H PRN Discharge Instructions Instructions: Chest Pain, Adult ED Additional Instructions: You were seen in the emergency department today for evaluation of chest pain and shortness of breath in the setting of a strange odor in your apartment building hallway. In our department you had a full physical examination performed, had laboratory studies that were reassuring, and specifically showed no evidence of damage to your heart, changes in your blood counts, or injury to your kidney or liver. We monitored your heart rate in the emergency department, and it has not been excessively fast. You had an x-ray that did not show abnormalities in your lungs like infection or inflammation. Unfortunately, we are sometimes unable to determine the exact symptoms in the emergency department for every single person. I recommend that you keep your appointments with your outpatient specialist including allergy and your porphyria testing. You need to contact your primary care provider on Wednesday to schedule a follow-up visit to discuss the symptoms and any changes in your health after discharge. Thank you for allowing us to be part of your care. HPI General Mode of arrival: EMS . Date/Time Provider Initiated Documentation: 02/23/25 21:03 . Limitations to Documentation: no limitations . Information obtained by: patient, EMS and old records reviewed . HPI Narrative: This is a 64-year-old female patient with a history of asthma, GERD, KOLBY, generalized anxiety disorder, and IBS who is presenting for evaluation of shortness of breath and chest pain. The patient reports that she is concerned that somebody in her apartmentbuilding is smoking either pot or meth, as she has noted a strange smell in her hallway that seems to irritate her throat. She reports that when she smells that she begins to feel short of breath and has tightness across the front of her chest. She reports that she is concerned because she has noted several other difficult to describe symptoms, such as funny feelings in her legs and her head. She reports that she is awaiting workup at several outpatient specialists for allergy testing as she believes that there may be some chemical component to this that she is sensitive to. The patient reports that she has not tried her inhaler as she did not feel like she needed it. She does not like to take any medications for management of her anxiety, as she is afraid of what they could due to her body. She is quite tearful. EMS was summoned, noted her to be hemodynamically appropriate and oxygenating at 100% on room air. She was transported to our facility without acute intervention. Wears CPAP at night at home but does not use home oxygen. Related Data Home Medications ?Medication ?Instructions ?Recorded ?Confirmed cholecalciferol (vitamin D3) 25 50 mcg (2 x 25 mcg (1, 000 unit)) 05/19/24 02/18/25 mcg (1,000 unit) tablet PO DAILY #90 tabs acetaminophen 500 mg tablet 1,000 mg PO BID PRN 02/18/25 (Acetaminophen Extra Strength) lidocaine 4 % topical patch 1 patch topical DAILY PRN #15 ea 10/17/24 02/18/25 cyclobenzaprine 5 mg tablet 5 mg PO QHS PRN #15 tabs 0 10/27/24 02/18/25 albuterol sulfate 2.5 mg/3 mL 2.5 mg inhalation TID AR N 11/28/24 02/18/25 (0.083 %) solution for nebulization albuterol sulfate 90 mcg/actuation 2 puff inhalation Q 4H PRN 11/28/24 02/18/25 aerosol inhaler inhalational spacing device #1 ea 11/28/24 02/13/25 ([employer] [facility] spacer) loperamide 2 mg capsule 2 mg PO Q6H PRN 12/29/2405/05 (Anti-Diarrheal (loperamide)) dicyclomine 10 mg capsule mg PO TID PRN 02/13/2502/13 metoprolol succinate 50 mg See Rx Instructions .Route 02/13/25 02/18/25 tablet,extended release 24 hr .COMPLEX #90 tabs Previous Rx's ?Medication ?Instructions ?Recorded cholecalciferol (vitamin D3) 25 50 mcg (2 x 25 mcg (1, 000 unit)) 05/19/24 mcg (1,000 unit) tablet PO DAILY #90 tabs lidocaine 4 % topical patch 1 patch topical DAILY PRN #15 ea 10/17/24 cyclobenzaprine 5 mg tablet 5 mg PO QHS PRN #15 tabs 0 10/27/24 metoprolol succinate 50 mg See Rx Instructions .Route 02/13/25 tablet,extended release 24 hr .COMPLEX #90 tabs Allergies Allergy/AdvReac Type Severity Reaction Status Date / Time albuterol Allergy Unknown Anxiety Verified 02/23/25 21:44 amoxicillin Allergy Unknown Itchiness, Verified 02/23/25 21:44 swelling aspirin Allergy Unknown Unknown Verified 02/23/25 21:44 azithromycin (From Zithromax) Allergy Unknown Itchiness Verified 02/23/25 21:44 calcitonin Allergy Unknown Dizziness/L Verified 02/23/25 21:44 ighthead ciprofloxacin Allergy Unknown Anxiety Verified 02/23/25 21:44 doxycycline Allergy Unknown Unknown Verified 02/23/25 21:44 hydrochlorothiazide Allergy Unknown Stomach Verified 02/23/25 21:44 pain ibuprofen Allergy Unknown Unknown Verified 02/23/25 21:44 metformin Allergy Unknown Unknown Verified 02/23/25 21:44 omeprazole Allergy Unknown Unknown Verified 02/23/25 21:44 pantoprazole Allergy Unknown Unknown Verified 02/23/25 21:44 paroxetine Allergy Unknown Unknown Verified 02/23/25 21:44 Penicillins Allergy Unknown Itchiness, Verified 02/23/25 21:44 swelling phenazopyridine (From Allergy Unknown Unknown Verified 02/23/25 21:44 Pyridium) polyethylene glycol 3350 Allergy Unknown Unknown Verified 02/23/25 21:44 (From Miralax) prednisone Allergy Unknown unknown Verified 02/23/25 21:44 sulfamethoxazole (From Allergy Unknown Unknown Verified 02/23/25 21:44 Bactrim) trimethoprim (From Bactrim) Allergy Unknown Unknown Verified 02/23/25 21:44 gabapentin AdvReac Intermediate Dizziness/L Verified 02/23/25 21:44 ighthead General Stated Complaint: GenMedical STELLA: 3 Exam Narrative Exam Narrative: Gen: Awake and alert, tearful and crying HEENT: Non-icteric sclera, PERRL. Posterior pharynx without redness or erythema, swelling, irritation or exudate Neck: Supple, full range of motion Lungs: No apparent respiratory distress, normal respiratory effort. Lung sounds are clear and equal bilaterally without wheezes, rhonchi, rales CV: Appears well perfused, heart with regular rate and rhythm, strong distal pulses Abdomen: Non-distended MSK: Moves 4 extremities without apparent limitation in ROM. No peripheral edema is noted, no unilateral calf swelling Skin: Visualized skin without rashes, cyanosis. Neuro: Normal Gait with walker, no obvious focal deficits or facial asymmetry. Speaks in full, clear sentences. Psych: Endorsing significant stress and anxiety Course Vital Signs Vital signs: Vital Signs Temperature 36.6 C 02/23/25 21: Pulse 94 H 02/23/25 21:01 Respiratory Rate 16 02/23/25 21:01 Blood Pressure 165/73 H 02/23/25 21:01 Pulse Oximetry 98 02/23/25 21:01 Temperature 36.6 C 02/23/25 21:08 Pulse 94 H 02/23/25 21:08 Respiratory Rate 16 02/23/25 21:08 Blood Pressure 165/73 H 02/23/25 21:08 Pulse Oximetry 98 02/23/25 21:08 Oxygen Delivery Method Room Air 02/23/25 21:08 Oxygen Flow Rate 0 02/23/25 21:08 Pain Level 0 02/23/25 21:08 Lab/Test Results Lab/Test Results: Laboratory Tests Range/Units 02/23/25 21:34 WBC (4.4-10.8) 10^3/uL 5.79 RBC (3.93-5.22) 10^6/uL 4.42 Hgb (11.2-15.7) g/dL 13.3 Hct (36.0-46.0) % 41.4 MCV (80-95) fL 94 MCH (27.0-33.0) pg 30.1 MCHC (32.0-36.0) % 32.1 RDW (11.7-14.6) % 13.4 Plt Count (130-400) 10^3/uL 200 MPV (8.0-11.0) fL 9.0 Immature Gran % % 0.2 Neutrophils % % 65.2 Lymphocytes % % 23.7 Monocytes % % 8.5 Eosinophils % % 2.1 Basophils % % 0.3 Nucleated RBC % (0.0-0.3) % 0.0 Absolute Neutrophils (1.2-6.7) 10^3/uL 3.78 Absolute Lymphocytes (1.2-3.4) 10^3/uL 1.37 Absolute Monocytes (0.1-0.8) 10^3/uL 0.49 Absolute Eosinophils (0.0-0.7) 10^3/uL 0.12 Absolute Basophils (0.0-0.2) 10^3/uL 0.02 Medical Decision Making This is a 64-year-old female patient presenting for evaluation of shortness of breath, chest pain, and anxiety in the setting of concern for exposure to substances/smoke or chemicals. My differential includes but is not limited to ACS including STEMI, NSTEMI, unstable angina, certainly considered arrhythmia, pericarditis/myocarditis, aortic pathology. Considered pulmonary abnormalities including pneumonia, pneumonitis, bronchitis, pleural effusion, pulmonary edema, reactive airway disease, pneumothorax. The patient is without tachycardia, hypoxia, or a pleuritic component to his pain to significantly increase my concern for pulmonary embolism. No GI symptoms or vomiting to suggest Jaziel erhaave's, esophagitis, peptic ulcer disease, pancreatitis. Considered musculoskeletal pathologies including costochondritis, chest wall pain. Finally, there is a significant component of anxiety verbalized by this patient, which could certainly be contributing to her symptoms, which did occur in the setting of stress over exposure. I am reassured by the patient's vital signs and evaluation, we obtained an EKG which I reviewed, which shows a sinus rhythm without evidence of ischemia, interval abnormality, or ectopy. No priors available for comparison. I do not see an indication to proceed with albuterol given the lack of wheezing, as it may actually increase the patient's anxious feelings. She is not amenable at this time to trial any medications for her anxiety while awaiting workup. We will obtain a chest x-ray, and laboratory studies to include CBC, CMP, magnesium, troponin. - I independently interpreted the laboratory studies, which show no significant leukocytosis, anemia, or thrombocytopenia. The chemistry panel is without evidence of electrolyte abnormality, kidney dysfunction, or liver injury. Troponin was negative and without interval increase in 1 hour delta recheck. Chest x-ray reviewed by myself and shows no evidence of pneumonitis or pneumonia nor other abnormalities to account for her symptoms. On reassessment the patient has had significant improvement in her symptoms and anxiety, and we had an extended discussion regarding next steps in terms of outpatient workup, she will need to be reevaluated by her primary care provider to discuss strategies for dealing with the symptoms in the future. At this time, the patient has had a full medical evaluation and is safe for discharge to home. They are hemodynamically stable, ambulatory, and tolerating PO. They are understanding of the follow-up plan and return precautions. The patient was unfortunately not able to find a ride, and will be awaiting RCT in the morning. Oncoming provider made aware of the patient. Alysha Arredondo MD [facility] All Active Problems (Updated 02/23/25 @ 23:39 by Alysha Arredondo MD) Increased sensitivity of smell (Acute) Chest pain (Acute) Chronic back pain (Acute) Abdominal hernia (Acute) 01/03/25 [facility] Gastro note Long toenail (Acute) Plantar verruca (Acute) Thoracic radiculopathy (Acute) Blood dyscrasia (Acute) Allergies (Acute) Knee pain, right (Acute) Hypertrophic toenail (Acute) [place] (Acute) left heel Trigger thumb, right thumb (Acute) Back pain (Acute) Rectal incontinence (Acute) Addressed at GI visit 08/02/2024 recommend adding fiber to diet, fiber supplement and/or Imodium, start dicyclomine as needed. Work with dietitian; soft well cooked vegetables, avoid raw vegetables and leafy greens. IBS (irritable bowel syndrome) (Chronic) Ovarian cyst, left (Acute) Diverticulosis (Acute) CTS (carpal tunnel syndrome) (Acute) Pain of right thumb (Acute) Compression fracture of L4 vertebra (Acute) See MRI dated 09/24/[address] 10/2024: 4 compression fractures Malignant neoplasm of uterus (Acute) Endometrial cancer treated with brachytherapy in 2019. According to [facility] note 12/22/2023 no subsequent vaginal bleeding or symptoms recurrent. Normal pelvic CT in September 2023, plan is to follow-up in 6 months. In December 2024, 5 years will have passed since her diagnosis of endometrial cancer and the patient may proceed with routine [employer] care as necessary. Prediabetes (Acute) Obesity (Chronic) Unsteadiness on feet (Acute) Primary generalized (osteo)arthritis (Acute) Gastro-esophageal reflux disease without esophagitis (Acute) Essential (primary) hypertension (Acute) Combined forms of age-related cataract, bilateral (Acute) Essential tremor (Acute) Personal history of malignant neoplasm of other parts of uterus (Acute) Dorsalgia, unspecified (Acute) Major depressive disorder, recurrent severe without psychotic features (Acute) Weakness (Acute) Vitamin D deficiency (Acute) Unspecified hearing loss, unspecified ear (Acute) Anxiety disorder, unspecified (Acute) Generalized anxiety disorder (Acute) Other spondylosis, lumbar region (Acute) Carpal tunnel syndrome, right upper limb (Acute) 08/31/2019 for EMG; 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 11/30/2023 for carpal tunnel release surgery Asthma (Chronic) Unilateral primary osteoarthritis, right knee (Acute) 02/01/2023 orthopedic injection of [place]il[place] Anatomical narrow angle, bilateral (Acute) Obstructive sleep apnea (Chronic) Pain in right ankle and joints of right foot (Acute) Low back pain, unspecified (Acute) Adjustment disorder, unspecified (Chronic) Morbid obesity due to excess calories (Acute) Medical History Follow-up exam Small bowel obstruction Constipation, unspecified Surgical History History of tonsillectomy History of bunionectomy of left great toe H/O hernia repair History of colon surgery Colon rupture repair H/O section (1988) History of colonoscopy (2018) History of cholecystectomy (2019) H/O laser iridotomy (2021) Family History Mother Anxiety Diabetes Heart disease Paternal Grandfather Cancer Brother Depression Diabetes Cancer Maternal Grandmother Heart disease Social History Smoking/Tobacco Use Status: Never Second Hand Exposure: No Smoking risk assessment performed?: Yes Alcohol Intake: never Drug use: Never Substance use type: does not use Adopted: No Caregiver/Support person: No Foster care: No Household members: none Housing: apartment Number of Children: 2 number of grandchildren: 0 Communication Needs: Hard of Hearing and Corrective Lenses Education Level: college Do you need help understanding health information?: Often Pets and animals: No Sexually active: No Do you think of yourself as: straight/heterosexual Current gender identity: female What is your relationship status?: How often do you talk on the phone with friends or family?: three or more times per week How often do you get together with friends or relatives?: decline to answer Do you belong to any clubs or organized social groups?: decline to answer Panel score (0-1 are the most socially isolated patients): 1 What type of physical activity do you participate in: walking Duration: 30-45 minutes/day Frequency: daily Sharita/Buddhist: Other Seatbelt use: always Helmet use: No Drive intox or ride w/intox 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
[2025-02-23 22:02] LABS: ALT 19 U/L (14-59); AST 17 U/L (15-37); Albumin 3.4 g/dL (3.4-5.0); Alkaline Phosphatase 65 U/L (46-116); Anion Gap 6.2 mmol/L (3-11); BUN 15 mg/dL (7-18); Bilirubin, Total 0.4 mg/dL (0.2-1.0); CO2 30.8 mmol/L (21.0-32.0); Calcium 8.9 mg/dL (8.5-10.1); Chloride 101 mmol/L (98-107); Estimated GFR 70.51 (mL/min/1.73m2); Glucose 127 mg/dL (74-106); Magnesium 2.1 mg/dL (1.8-2.4); Potassium 4.0 mmol/L (3.5-5.1); Sodium 138 mmol/L (136-145); Total Protein 7.6 g/dL (6.4-8.2); Troponin I 8 ng/L (<or=51)
--- NOTE | 2025-02-23 23:10 | DI.VRAD_ITS ---
PROCEDURE INFORMATION: Exam: XR Chest Exam date and time: 02/23/2025 10:04 PM Age: 64 years old Clinical indication: Chest pressure and chest wall pain TECHNIQUE: Imaging protocol: Radiologic exam of the chest. Views: 2 views. COMPARISON: CR XR CHEST 2V PA LATERAL 11/13/2024 2:47 PM FINDINGS: Lungs: No alveolar infiltrate. Pleural spaces: No pleural fluid collection. No pneumothorax. Heart/Mediastinum: Prominent cardiac silhouette. Bones/joints: Unremarkable for patient age. Soft tissues: On the frontal view, likely soft tissue density superimposed over the inferior right lung base. IMPRESSION: No active pulmonary disease. Dictated and Authenticated by: Axel Gregorio MD. Orderin [facility] Larry Encarnacion MD
[2025-02-23 23:20] LABS: Troponin I 9 ng/L (<or=51)
[2025-02-24 01:56] VITALS: RESP 20
== END 2025-02-24 08:55 | disposition home or self-care (01) ==
PROVIDERS: Emergency Provider Emergency Medicine; PCP Nurse Practitioner Family
DX: R07.9 Chest pain, unspecified (principal); R06.02 Shortness of breath; R43.1 Parosmia; I10 Essential (primary) hypertension; F41.9 Anxiety disorder, unspecified
CPT/HCPCS: 99284 ×2; 36415; 80053; 93005; 71046; 83735; 84484; 85025; 93010

== ENCOUNTER 2025-03-20 10:25 | Outpatient (CLI) | payer MEDICARE, MEDICAID, SELFPAY ==
[2025-03-23 17:58] LABS: Free Protoporphyrin 14 mcg/dL (<20); Zinc-Complexed Protoporphyrin 53 mcg/dL (<60)
== END 2025-03-20 10:26 | disposition home or self-care (01) ==
LOC: LBO 10:25
PROVIDERS: PCP Nurse Practitioner Family; Referring Provider Nurse Practitioner Family; Visit Provider Nurse Practitioner Family
DX: D75.9 Disease of blood and blood-forming organs, unspecified (principal)
CPT/HCPCS: 36415; 82542

== ENCOUNTER → 2025-03-21 14:20 | Outpatient (BNVA) | payer MEDICARE, MEDICAID, SELFPAY | PROVIDERS: PCP Nurse Practitioner Family; Referring Provider Nurse Practitioner Family; Visit Provider Podiatrist | DX: B07.0 Plantar wart (principal); L60.2 Onychogryphosis; M79.674 Pain in right toe(s) | CPT/HCPCS: 17110 ==

== ENCOUNTER 2025-04-04 16:07 | Outpatient (CLI) | payer MEDICARE, MEDICAID, SELFPAY ==
--- NOTE | 2025-04-04 16:00 | DI.RAD_ITS ---
Exam(s) XR TIB/FIB RT EXAM: XR TIB/FIB RT CLINICAL HISTORY: Tibial pain, M89.8X6. TECHNIQUE: 2D digital imaging was performed. Two views. COMPARISON: CR XR KNEE RT 3V AP,LAT,RAMA from 12/06/2024 FINDINGS: Exam is limited due to patient body habitus. BONES: No acute fracture is present. No bony destructive lesion is seen. Joints: There is narrowing of the medial femoral tibial joint space and periarticular spurring as noted on prior knee x-rays. The ankle is unremarkable as visualized. SOFT TISSUE: Mild diffuse lower extremity edema. IMPRESSION: Degenerative changes of the knee. Soft tissue edema. DATA REPOSITORY: RADIATION DOSE DELIVERED:
== END 2025-04-04 16:27 ==
LOC: DI 16:07
PROVIDERS: PCP Nurse Practitioner Family; Visit Provider Family Medicine
DX: M89.8X6 Other specified disorders of bone, lower leg (principal)
CPT/HCPCS: 73590

== ENCOUNTER 2025-04-06 03:12 | Emergency (ER) | payer MEDICARE, MEDICAID, SELFPAY ==
[2025-04-06 03:18] VITALS: BP 156/57; PULSE 73; RESP 18; O2SAT 97
[2025-04-06] MEDS: Acetaminophen 500 MG TAB 1000 MG PO (03:58)
[2025-04-06] MEDS: Povidone-Iodine Soln. 118 ML BTL (03:58)
--- NOTE | 2025-04-06 03:58 | W.ED.GENAD ---
Discharge Plan Discharge Details Chief Complaint: Orthopedic Primary Care Provider: Sofía Brady ED Provider: Marina Fall Home Meds and New Rx's Prescriptions: No Action cholecalciferol (vitamin D3) 25 mcg (1,000 unit) tablet 50 mcg PO DAILY Qty: 90 3RF acetaminophen [Acetaminophen Extra Strength] 500 mg tablet 1,000 mg PO BID PRN albuterol sulfate 2.5 mg /3 mL (0.083 %) solution for nebulization 2.5 mg inhalation TID PRN Patient Comments: INHALE ONE VIAL VIA NEBULIZER THREE TIMES A DAY NEEDED FOR COUGH/WHEEZE/SHORTNESS OF BREATH albuterol sulfate 90 mcg/actuation HFA aerosol inhaler 2 puff inhalation Q4H PRN Patient Comments: INHALE TWO PUFFS BY MOUTH EVERY 4 HOURS NEEDED FOR COUGH/WHEEZE/SHORTNESS OF BREATH ([facility] Instructions .ROUTE .MEDSUPPLY Qty: 1 Patient Comments: USE DIRECTED WITH ALBUTEROL INHALER Rx Instructions: As directed dicyclomine 10 mg capsule PO TID PRN Patient Comments: TAKE ONE CAPSULE BY MOUTH THREE TIMES A DAY NEEDED FOR PAIN metoprolol succinate 50 mg tablet extended release 24 hr See Rx Instructions .ROUTE .COMPLEX Qty: 90 2RF Dose Instruction: TAKE ONE TABLET BY MOUTH EVERY DAY Rx Instructions: TAKE ONE TABLET BY MOUTH EVERY DAY lidocaine 4 % adhesive patch,medicated 1 patch topical DAILY PRNQty: 15 0RF cyclobenzaprine 5 mg tablet 5 mg PO QHS PRNQty: 15 0RF Patient Comments: has not used loperamide [Anti-Diarrheal (loperamide)] 2 mg capsule 2 mg PO Q6H PRN HPI General Mode of arrival: EMS. Date/Time Provider Initiated Documentation: 04/06/25 03:28. Limitations to Documentation: no limitations. Information obtained by: patient. HPI Narrative: 64yo F with hx HTN, asthma, obesity, depression/anxiety, presenting for left toe pain. Was getting up from her recliner when she accidentally kicked the leg of her walker. Severe pain all middle toes on left foot, worse with walking. No numbness or tingling. Did not fall. Able to ambulate since. Has not yet taken anything for pain. Otherwise in her usual state of health. Related Data Home Medications ?Medication ?Instructions ?Recorded ?Confirmed cholecalciferol (vitamin D3) 25 50 mcg (2 x 25 mcg (1,000 unit)) 05/19/24 04/04/25 mcg (1,000 unit) tablet PO DAILY #90 tabs acetaminophen 500 mg tablet 1,000 mg PO BID PRN 08/29/24 04/04/25 (Acetaminophen Extra Strength) lidocaine 4 % topical patch 1 patch topical DAILY PRN #15 ea 10/17/24 04/04/25 cyclobenzaprine 5 mg tablet 5 mg PO QHS PRN #15 tabs 10/27/24 04/04/25 albuterol sulfate 2.5 mg/3 mL 2.5 mg inhalation TID PRN 11/28/24 04/04/25 (0.083 %) solution for nebulization albuterol sulfate 90 mcg/actuation 2 puff inhalation Q4H PRN 11/28/24 04/04/25 aerosol inhaler inhalational spacing device #1 ea 11/28/24 04/04/25 ([facility] spacer) loperamide 2 mg capsule 2 mg PO Q6H PRN 12/29/24 04/04/25 (Anti-Diarrheal (loperamide)) dicyclomine 10 mg capsule mg PO TID PRN 02/13/25 04/04/25 metoprolol succinate 50 mg See Rx Instructions .Route 02/13/25 04/04/25 tablet,extended release 24 hr .COMPLEX #90 tabs Previous Rx's ?Medication ?Instructions ?Recorded cholecalciferol (vitamin D3) 25 50 mcg (2 x 25 mcg (1,000 unit)) 05/19/24 mcg (1,000 unit) tablet PO DAILY #90 tabs lidocaine 4 % topical patch 1 patch topical DAILY PRN #15 ea 10/17/24 cyclobenzaprine 5 mg tablet 5 mg PO QHS PRN #15 tabs 10/27/24 metoprolol succinate 50 mg See Rx Instructions .Route 02/13/25 tablet,extended release 24 hr .COMPLEX #90 tabs Allergies Allergy/AdvReac Type Severity Reaction Status Date / Time albuterol Allergy Unknown Anxiety Verified 04/04/25 15:34 amoxicillin Allergy Unknown Itchiness, Verified 04/04/25 15:34 swelling aspirin Allergy Unknown Unknown Verified 04/04/25 15:34 azithromycin (From Zithromax) Allergy Unknown Itchiness Verified 04/04/25 15:34 calcitonin Allergy Unknown Dizziness/L Verified 04/04/25 15:34 ighthead ciprofloxacin Allergy Unknown Anxiety Verified 04/04/25 15:34 doxycycline Allergy Unknown Unknown Verified 04/04/25 15:34 hydrochlorothiazide Allergy Unknown Stomach Verified 04/04/25 15:34 pain ibuprofen Allergy Unknown Unknown Verified 04/04/25 15:34 metformin Allergy Unknown Unknown Verified 04/04/25 15:34 omeprazole Allergy Unknown Unknown Verified 04/04/25 15:34 pantoprazole Allergy Unknown Unknown Verified 04/04/25 15:34 paroxetine Allergy Unknown Unknown Verified 04/04/25 15:34 Penicillins Allergy Unknown Itchiness, Verified 04/04/25 15:34 swelling phenazopyridine (From Allergy Unknown Unknown Verified 04/04/25 15:34 Pyridium) polyethylene glycol 3350 Allergy Unknown Unknown Verified 04/04/25 15:34 (From Miralax) prednisone Allergy Unknown unknown Verified 04/04/25 15:34 sulfamethoxazole (From Allergy Unknown Unknown Verified 04/04/25 15:34 Bactrim) trimethoprim (From Bactrim) Allergy Unknown Unknown Verified 04/04/25 15:34 gabapentin AdvReac Intermediate Dizziness/L Verified 04/04/25 15:34 ighthead General Stated Complaint: Orthopedic STELLA: 4 Review of Systems Narrative: see HPI Exam Narrative Exam Narrative: General: Alert, well appearing, well nourished, in no acute distress. Head: Normocephalic, atraumatic Neck: Trachea midline, ?Neck supple. ENT: ?MMM.? Cardiac: ?RRR, no murmurs appreciated Resp: No respiratory distress. CTAB. Abd: ?Non-distended Extremities: Left foot: TTP of 2-4th digits, 2 > 3 > 4 and distal phalanyxes > proximal. 2-3 distal metatarsals with slight bony tenderness. Subungal hematoma 2nd digit, no avulsion, nail folds intact. Sensation to light touch intact throughout, brisk capillary refill all digits. Neurologic: GCS 15. ? Moves all extremities freely against gravity Course Vital Signs Vital signs: Vital Signs Pulse 73 04/06/25 03:18 Respiratory Rate 18 04/06/25 03:18 Blood Pressure 156/57 H 04/06/25 03:18 Pulse Oximetry 97 04/06/25 03:18 Temperature Source Tympanic 04/06/25 03:18 Pulse 73 04/06/25 03:18 Respiratory Rate 18 04/06/25 03:18 Blood Pressure 156/57 H 04/06/25 03:18 Blood Pressure Position Sitting 04/06/25 03:18 Pulse Oximetry 97 04/06/25 03:18 Oxygen Delivery Method Room Air 04/06/25 03:18 Oxygen Flow Rate 0 04/06/25 03:18 Pain Level 9 04/06/25 03:18 Procedure Nail Trephination Date of Procedure: 04/06/25 Time of procedure: 04:13 Provider that performed the procedure: Marina Fall Indication: Subungual hemotoma Patient Consented: Verbally Location (toes): left and second digit Sterile prep: betadine Method of drainage: other (electrocautery) Procedure successful: Yes Patient tolerated procedure: well Procedure Description/Note: Nail hebrew removed. Area cleansed thoroughly with betadine. Nail trephinated with electrocautery, blood drained with immediate relief of pain. Gentle pressure applied to express scant amount of additional blood. Medical Decision Making 64yo F with hx HTN, asthma, obesity, depression/anxiety, presenting for left toe pain; kicked the leg of her walker. Did not fall, no other injuries. Left 2-4 digits TTP, most signficantly at the distal phalanxes. Some mild distal metatarsal tenderness as well. Neurovascular intact and no deformities. Left 2nd digit with subungal hematoma, no avulsion, nailbed intact. Trephinated with immediate reduction in pain level. Given PO tylenol and taken for XR. Tetanus booster given. No indication for labs or CT imaging. Plain films independently reviewed; no displaced fractures on my view. [facility] with extended read times overnight (estimating up to 225 minutes), so pt remains inthe ED awaiting radiology read. On reassessment pain is much improved and she is able to walk with less pain, though it does still hurt. If fracture evident on radiology read (depending on location), likely would place in hard sole boot and/or darci tape and discharge home on 7 day course of cephalosporin to followup with orthopedics. Of note, she does have an appt with orthopedics scheduled for 04/09/25 for FU for knee pain. Signed out to oncoming physician, plan to follow up x ray read. [facility] All Active Problems (Updated 04/04/25 @ 16:00 by Hayden Dodson MD) Right calf pain (Acute) Compression fracture of T12 vertebra (Acute) Abdominal hernia (Acute) 01/03/25 [facility] Gastro note Long toenail (Acute) Plantar verruca (Acute) Thoracic radiculopathy (Acute) Blood dyscrasia (Acute) Allergies (Acute) Knee pain, right (Acute) Hypertrophic toenail (Acute) [place] (Acute) left heel Trigger thumb, right thumb (Acute) Back pain (Acute) Rectal incontinence (Acute) Addressed at GI visit 08/02/2024 recommend adding fiber to diet, fiber supplement and/or Imodium, start dicyclomine as needed. Work with dietitian; soft well cooked vegetables, avoid raw vegetables and leafy greens. IBS (irritable bowel syndrome) (Chronic) Ovarian cyst, left (Acute) Diverticulosis (Acute) CTS (carpal tunnel syndrome) (Acute) Pain of right thumb (Acute) Compression fracture of L4 vertebra (Acute) See MRI dated 09/24/[address] 10/2024: 4 compression fractures Malignant neoplasm of uterus (Acute) Endometrial cancer treated with brachytherapy in 2019. According to [employer] note 12/22/2023 no subsequent vaginal bleeding or symptoms recurrent. Normal pelvic CT in September 2023, plan is to follow-up in 6 months. In December 2024, 5 years will have passed since her diagnosis of endometrial cancer and the patient may proceed with routine [facility] care as necessary. Prediabetes (Acute) Obesity (Chronic) Unsteadiness on feet (Acute) Primary generalized (osteo)arthritis (Acute) Gastro-esophageal reflux disease without esophagitis (Acute) Essential (primary) hypertension (Acute) Combined forms of age-related cataract, bilateral (Acute) Essential tremor (Acute) Personal history of malignant neoplasm of other parts of uterus (Acute) Dorsalgia, unspecified (Acute) Major depressive disorder, recurrent severe without psychotic features (Acute) Weakness (Acute) Vitamin D deficiency (Acute) Unspecified hearing loss, unspecified ear (Acute) Anxiety disorder, unspecified (Acute) Generalized anxiety disorder (Acute) Other spondylosis, lumbar region (Acute) Carpal tunnel syndrome, right upper limb (Acute) 08/31/2019 for EMG; 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 11/30/2023 for carpal tunnel release surgery Asthma (Chronic) Unilateral primary osteoarthritis, right knee (Acute) 02/01/2023 orthopedic injection of Zil[place]ta Anatomical narrow angle, bilateral (Acute) Obstructive sleep apnea (Chronic) Pain in right ankle and joints of right foot (Acute) Low back pain, unspecified (Acute) Adjustment disorder, unspecified (Chronic) Morbid obesity due to excess calories (Acute) Medical History Follow-up exam Small bowel obstruction Constipation, unspecified Surgical History History of tonsillectomy History of bunionectomy of left great toe H/O hernia repair History of colon surgery Colon rupture repair H/O section (1988) History of colonoscopy (2018) History of cholecystectomy (2019) H/O laser iridotomy (2021) Family History Mother Anxiety Diabetes Heart disease Paternal Grandfather Cancer Brother Depression Diabetes Cancer Maternal Grandmother Heart disease Social History Smoking/Tobacco Use Status: Never Second Hand Exposure: No Smoking risk assessment performed?: Yes Alcohol Intake: never Drug use: Never Substance use type: does not use Adopted: No Caregiver/Support person: No Foster care: No Household members: none Housing: apartment Number of Children: 2 number of grandchildren: 0 Communication Needs: Hard of Hearing and Corrective Lenses Education Level: college Do you need help understanding health information?: Often Pets and animals: No Sexually active: No Do you think of yourself as: straight/heterosexual Current gender identity: female What is your relationship status?: How often do you talk on the phone with friends or family?: three or more times per week How often do you get together with friends or relatives?: decline to answer Do you belong to any clubs or organized social groups?: decline to answer Panel score (0-1 are the most socially isolated patients): 1 What type of physical activity do you participate in: walking Duration: 30-45 minutes/day Frequency: daily Sharita/Sabianist: Other Seatbelt use: always Helmet use: No Drive intox or ride w/intox hammer driver: No Do you feel safe at home: Yes Do you feel safe in your relationship?: Yes
--- NOTE | 2025-04-06 04:39 | DI.RAD_ITS ---
Exam(s) XR FOOT LT COMPLETE EXAM: XR FOOT LT COMPLETE CLINICAL HISTORY: kicked walker, 2-4 toe pain/TTP, metatarsal TTP. TECHNIQUE: 2D digital imaging was performed. Three views. COMPARISON: CR XR FOOT LT COMPLETE from 09/25/2024 FINDINGS: BONES: No acute fracture is present. A screw is again noted in the distal 5th metatarsal for fracture fixation. No bony destructive lesion is seen. Heel spurs. Bipartite medial sesamoid appears unchanged. JOINTS: No dislocation present. SOFT TISSUE: N mild swelling. IMPRESSION: No evidence of acute fracture. The preliminary [facility] report was reviewed. DATA REPOSITORY: RADIATION DOSE DELIVERED:
[2025-04-06] MEDS: Tetanus & Diphtheria Tox,ADULT 0.5 ML VIAL IM (04:49)
[2025-04-06 06:18] VITALS: BP 139/76; PULSE 77; RESP 16; TEMP 36.2; O2SAT 96
--- NOTE | 2025-04-06 07:56 | DI.VRAD_ITS ---
PROCEDURE INFORMATION: Exam: XR Left Foot Exam date and time: 04/06/2025 4:30 AM Age: 64 years old Clinical indication: Injury or trauma; Other: Kicked object; Blunt trauma; Left lesser toe(s); Injury details: 2 and 3rd toes trauma TECHNIQUE: Imaging protocol: Radiologic exam of the left foot. Views: 3 or more views. COMPARISON: CR XR FOOT LT COMPLETE 09/25/2024 1:30 PM FINDINGS: Internal fixation in the 5th metatarsal. No acute fracture seen. Bipartite medial sesamoid with cystic changes. IMPRESSION: No acute fracture seen. Dictated and Authenticated by: Luisa Remy MD. Orderin Juan David Gray MD
--- NOTE | 2025-04-06 08:14 | ED.PROG_ITS ---
Date of service: 04/06/25 Time of Service: 08:14 Medical Decision Making ED course: Patient care assumed pending final read of patient's foot x-ray. If no acute pathology patient will be stable for discharge. Results reviewed. No acute fracture or dislocation noted on foot x-ray. Will discharge patient to follow-up primary care. Clinical impression: Subungual hematoma Disposition: Discharge Radiology: PROCEDURE INFORMATION: Exam: XR Left Foot Exam date and time: 04/06/2025 4:30 AM Age: 64 years old Clinical indication: Injury or trauma; Other: Kicked object; Blunt trauma; Left lesser toe(s); Injury details: 2 and 3rd toes trauma TECHNIQUE: Imaging protocol: Radiologic exam of the left foot. Views: 3 or more views. COMPARISON: CR XR FOOT LT COMPLETE 09/25/2024 1:30 PM FINDINGS: Internal fixation in the 5th metatarsal. No acute fracture seen. Bipartite medial sesamoid with cystic changes. IMPRESSION: No acute fracture seen. Thank you for allowing us to participate in the care of your patient. Dictated and Authenticated by: Luisa Remy MD 04/06/2025 7:55 AM Eastern Time ([place] & [place]) Discharge Plan Disposition Patient Disposition: Home Discharge Details Clinical Impression: Subungual hematoma of foot Primary Care Provider: Sofía Brady ED Provider: Marco Antonio Willett Meds and New Rx's Prescriptions: Continued cholecalciferol (vitamin D3) 25 mcg (1,000 unit) tablet 50 mcg PO DAILY Qty: 90 3RF acetaminophen [Acetaminophen Extra Strength] 500 mg tablet 1,000 mg PO BID PRN albuterol sulfate 2.5 mg /3 mL (0.083 %) solution for nebulization 2.5 mg inhalation TID PRN Patient Comments: INHALE ONE VIAL VIA NEBULIZER THREE TIMES A DAY NEEDED FOR COUGH/WHEEZE/SHORTNESS OF BREATH albuterol sulfate 90 mcg/actuation HFA aerosol inhaler 2 puff inhalation Q4H PRN Patient Comments: INHALE TWO PUFFS BY MOUTH EVERY 4 HOURS NEEDED FOR COUGH/WHEEZE/SHORTNESS OF BREATH (DME) Raymond Ontiveros [facility] Spacer See Rx Instructions .ROUTE .MEDSUPPLY Qty: 1 Patient Comments: USE DIRECTED WITH ALBUTEROL INHALER Rx Instructions: As directed dicyclomine 10 mg capsule PO TID PRN Patient Comments: TAKE ONE CAPSULE BY MOUTH THREE TIMES A DAY NEEDED FOR PAIN metoprolol succinate 50 mg tablet extended release 24 hr See Rx Instructions .ROUTE .COMPLEX Qty: 90 2RF Dose Instruction: TAKE ONE TABLET BY MOUTH EVERY DAY Rx Instructions: TAKE ONE TABLET BY MOUTH EVERY DAY lidocaine 4 % adhesive patch,medicated 1 patch topical DAILY PRNQty: 15 0RF cyclobenzaprine 5 mg tablet 5 mg PO QHS PRNQty: 15 0RF Patient Comments: has not used loperamide [Anti-Diarrheal (loperamide)] 2 mg capsule 2 mg PO Q6H PRN Discharge Instructions Instructions: Minor Contusion ED Additional Instructions: Please follow-up with your primary care provider regarding your visit to the emergency department today. Be sure to discuss results of all test performed here today to include radiology, and laboratory testing as well as results for any pending cultures. Should your symptoms worsen, or if you develop new concerning symptoms, please return immediately emergency department for further evaluation.
== END 2025-04-06 08:42 | disposition home or self-care (01) ==
PROVIDERS: Emergency Provider General Practice; PCP Nurse Practitioner Family
DX: S90.222A Contusion of left lesser toe(s) with damage to nail, initial encounter (principal); Z23 Encounter for immunization; W22.8XXA Striking against or struck by other objects, initial encounter
CPT/HCPCS: 00123; 11740; 90471; 90714; 99284; 73630; 99283

== ENCOUNTER → 2025-04-09 10:20 | Outpatient (BNVA) | payer MEDICARE, MEDICAID, SELFPAY | PROVIDERS: PCP Nurse Practitioner Family; Referring Provider Nurse Practitioner Family; Visit Provider Student in an Organized Health Care Education/Training Program | DX: M17.11 Unilateral primary osteoarthritis, right knee (principal) | CPT/HCPCS: 99214; 20610; J1010 ==

== ENCOUNTER → 2025-04-10 10:43 | Outpatient (BNVA) | payer MEDICARE, MEDICAID, SELFPAY | PROVIDERS: PCP Nurse Practitioner Family; Referring Provider Nurse Practitioner Family; Visit Provider Podiatrist | DX: M79.672 Pain in left foot (principal); S90.32XA Contusion of left foot, initial encounter; S90.222A Contusion of left lesser toe(s) with damage to nail, initial encounter; S91.205A Unspecified open wound of left lesser toe(s) with damage to nail, initial encounter; W22.09XA Striking against other stationary object, initial encounter | CPT/HCPCS: 99213 ==

== ENCOUNTER → 2025-04-25 11:22 | Outpatient (BNVA) | payer MEDICARE, MEDICAID, SELFPAY | PROVIDERS: PCP Nurse Practitioner Family; Referring Provider Nurse Practitioner Family; Visit Provider Podiatrist | DX: S91.205A Unspecified open wound of left lesser toe(s) with damage to nail, initial encounter (principal); S90.222A Contusion of left lesser toe(s) with damage to nail, initial encounter; S90.32XA Contusion of left foot, initial encounter; X58.XXXA Exposure to other specified factors, initial encounter; L60.3 Nail dystrophy | CPT/HCPCS: 11730 ==

== ENCOUNTER 2025-04-25 11:55 | Emergency (ER) | payer MEDICARE, MEDICAID, SELFPAY ==
[2025-04-25 12:09] VITALS: BP 156/66; PULSE 67; RESP 18; TEMP 36.5; O2SAT 98
--- NOTE | 2025-04-25 12:15 | DI.RAD_ITS ---
Exam(s) XR HAND RT COMPLETE EXAM: XR HAND RT COMPLETE CLINICAL HISTORY: Crush injury. TECHNIQUE: 2D digital imaging was performed of the right hand. Three images were obtained. AP, lateral and oblique views were obtained. COMPARISON: No exams were available for comparison FINDINGS: BONES: No acute fracture is present. No bony destructive lesion is seen. JOINTS: No dislocation present. SOFT TISSUE: Normal. IMPRESSION: There is no acute fracture or dislocation. DATA REPOSITORY: RADIATION DOSE DELIVERED:
--- NOTE | 2025-04-25 12:43 | ED.GENADUL_ITS ---
Discharge Plan Disposition Patient Disposition: Home Condition: Stable Discharge Details Clinical Impression: Contusion of right hand Primary Care Provider: Sofía Brady ED Provider: Evens Joyner Home Meds and New Rx's Prescriptions: Continued cholecalciferol (vitamin D3) 25 mcg (1,000 unit) tablet 50 mcg PO DAILY Qty: 90 3RF acetaminophen [Acetaminophen Extra Strength] 500 mg tablet 1,000 mg PO BID PRN albuterol sulfate 2.5 mg /3 mL (0.083 %) solution for nebulization 2.5 mg inhalation TID PRN Patient Comments: INHALE ONE VIAL VIA NEBULIZER THREE TIMES A DAY NEEDED FOR COUGH/WHEEZE/SHORTNESS OF BREATH albuterol sulfate 90 mcg/actuation HFA aerosol inhaler 2 puff inhalation Q4H PRN Patient Comments: INHALE TWO PUFFS BY MOUTH EVERY 4 HOURS NEEDED FOR COUGH/WHEEZE/SHORTNESS OF BREATH (DME) [facility] Spacer See Rx Instructions .ROUTE .MEDSUPPLY Qty: 1 Patient Comments: USE DIRECTED WITH ALBUTEROL INHALER Rx Instructions: As directed metoprolol succinate 50 mg tablet extended release 24 hr See Rx Instructions .ROUTE .COMPLEX Qty: 90 2RF Dose Instruction: TAKE ONE TABLET BY MOUTH EVERY DAY Rx Instructions: TAKE ONE TABLET BY MOUTH EVERY DAY lidocaine 4 % adhesive patch,medicated 1 patch topical DAILY PRNQty: 15 0RF Discontinued cyclobenzaprine 5 mg tablet 5 mg PO QHS PRNQty: 15 0RF Patient Comments: has not used loperamide [Anti-Diarrheal (loperamide)] 2 mg capsule 2 mg PO Q6H PRN No Action dicyclomine 10 mg capsule 10 mg PO TID PRN Patient Comments: TAKE ONE CAPSULE BY MOUTH THREE TIMES A DAY NEEDED FOR PAIN Discharge Instructions Additional Instructions: Keep your hand protected. Apply ice 3-4 times a day. Do not apply ice directly to skin be sure to use a fabric barrier. Avoid activities that worsen pain. Please follow-up with your primary care physician. Return to the emergency department immediately for any worsening or new concerning symptoms. Referrals: Sofía Brady APRN [Primary Care Provider, Family Practice] Discharge Data Discharge Date/Time-TO BE ENTERED AT DEPARTURE: 04/25/25 13:17 HPI General Mode of arrival: wheelchair . Date/Time Provider Initiated Documentation: 04/25/25 12:18 . Limitations to Documentation: no limitations . Information obtained by: patient . HPI Narrative: HISTORY OF PRESENT ILLNESS This is a 64-year-old female with a history of carpal tunnel surgery presenting with pain in her right hand. The patient reports that her right hand was caught in a bathroom door at [employer] this morning. Pain is worse over second MTP but extends across her knuckles and into her dorsal hand. With some numbness and difficulty in bending or moving her fingers. . She is right-handed. The patient states that it hurts to try to move her hand. No other injury sustained. The patient also mentions severe back and knee problems. PAST SURGICAL HISTORY: Carpal tunnel surgery on the right hand. Related Data Home Medications ?Medication ?Instructions ?Recorded ?Confirmed cholecalciferol (vitamin D3) 25 50 mcg (2 x 25 mcg (1, 000 unit)) 05/19/24 04/25/25 mcg (1,000 unit) tablet PO DAILY #90 tabs acetaminophen 500 mg tablet 1,000 mg PO BID PRN 04/25/25 (Acetaminophen Extra Strength) lidocaine 4 % topical patch 1 patch topical DAILY PRN #15 ea 10/17/24 04/25/25 albuterol sulfate 2.5 mg/3 mL 2.5 mg inhalation TID MD N 11/28/24 04/25/25 (0.083 %) solution for nebulization albuterol sulfate 90 mcg/actuation 2 puff inhalation Q 4H PRN 11/28/24 04/25/25 aerosol inhaler inhalational spacing device #1 ea 11/28/24 04/25/25 (Raymond Ontiveros [facility] spacer) dicyclomine 10 mg capsule 10 mg PO TID PRN 02/13/25 Held on 04/25/25. Instructions: hasnt needed metoprolol succinate 50 mg See Rx Instructions .Route 02/13/25 04/25/25 tablet,extended release 24 hr .COMPLEX #90 tabs Previous Rx's ?Medication ?Instructions ?Recorded cholecalciferol (vitamin D3) 25 50 mcg (2 x 25 mcg (1, 000 unit)) 05/19/24 mcg (1,000 unit) tablet PO DAILY #90 tabs lidocaine 4 % topical patch 1 patch topical DAILY PRN #15 ea 10/17/24 metoprolol succinate 50 mg See Rx Instructions .Route 02/13/25 tablet,extended release 24 hr .COMPLEX #90 tabs Allergies Allergy/AdvReac Type Severity Reaction Status Date / Time amoxicillin Allergy Unknown Itchiness, Verified 04/25/25 12:17 swelling aspirin Allergy Unknown Unknown Verified 04/25/25 12:17 azithromycin (From Zithromax) Allergy Unknown Itchiness Verified 04/25/25 12:17 doxycycline Allergy Unknown Unknown Verified 04/25/25 12:17 ibuprofen Allergy Unknown Unknown Verified 04/25/25 12:17 metformin Allergy Unknown Unknown Verified 04/25/25 12:17 omeprazole Allergy Unknown Unknown Verified 04/25/25 12:17 pantoprazole Allergy Unknown Unknown Verified 04/25/25 12:17 paroxetine Allergy Unknown Unknown Verified 04/25/25 12:17 Penicillins Allergy Unknown Itchiness, Verified 04/25/25 12:17 swelling phenazopyridine (From Allergy Unknown Unknown Verified 04/25/25 12:17 Pyridium) polyethylene glycol 3350 Allergy Unknown Unknown Verified 04/25/25 12:17 (From Miralax) prednisone Allergy Unknown unknown Verified 04/25/25 12:17 sulfamethoxazole (From Allergy Unknown Unknown Verified 04/25/25 12:17 Bactrim) trimethoprim (From Bactrim) Allergy Unknown Unknown Verified 04/25/25 12:17 gabapentin AdvReac Intermediate Dizziness/L Verified 04/25/25 12:17 ighthead albuterol AdvReac Unknown Anxiety Verified 04/25/25 12:17 calcitonin AdvReac Unknown Dizziness/L Verified 04/25/25 12:17 ighthead ciprofloxacin AdvReac Unknown Anxiety Verified 04/25/25 12:17 hydrochlorothiazide AdvReac Unknown Stomach Verified 04/25/25 12:17 pain General Stated Complaint: Orthopedic STELLA: 4 Exam Const General: cooperative and no acute distress HENMT Mouth: moist mucous membranes Cardio Rate: regular rate and not tachycardic Rhythm: regular rhythm Skin General skin exam: no rashes or lesions noted Neuro General: patient alert, patient awake and tone normal Extrem Right upper extremity: hand Details: neuromotor exam normal, neurosensory exam normal, tenderness Location: of the 2nd digit Location: at the MCP joint and of the 3rd digit Location: at the MCP joint and vascular exam Details: radial pulse present Course Vital Signs Vital signs: Vital Signs Temperature 36.5 C 10/15/25 12:09 Pulse 67 04/25/25 12:09 Respiratory Rate 18 04/25/25 12:09 Blood Pressure 156/66 H 04/25/25 12:09 Pulse Oximetry 98 04/25/25 12:09 Temperature 36.5 C 04/25/25 12:09 Temperature Source Oral 04/25/25 12:09 Pulse 67 04/25/25 12:09 Respiratory Rate 18 04/25/25 12:09 Blood Pressure 156/66 H 04/25/25 12:09 Pulse Oximetry 98 04/25/25 12:09 Pain Level 5 04/25/25 12:09 Medical Decision Making ASSESSMENT AND PLAN Initial Assessment: 64-year-old female with right hand injury from knuckles distally after hand got caught in a door. Bruising and pain upon movement. Differential Diagnosis: - Fracture: Possible due to trauma. X-ray performed. - Contusion: Possible due to bruising. X-ray performed. ED Course: - X-ray performed and reviewed and interpreted by radiology: There is no acute fracture or dislocation. - Tylenol 500 mg administered - Ice application recommended Final Assessment: Right hand injury with bruising and pain upon movement. X-ray negative for fracture. Suspect contusion. Tylenol 500 mg administered. Ice application recommended. Clinical Impression: - Right hand contusion Follow-Up: PCP routine Patient Education: Ice application recommended This document was written with the assistance of SYLVIA Hoyt. The patient consented to its use. PFSH All Active Problems (Updated 04/25/25 @ 12:47 by Evens Joyner MD) Contusion of right hand (Acute) Dystrophia unguium (Acute) Traumatic avulsion of nail plate of toe (Acute) Pain in left foot (Acute) Contusion of left foot (Acute) Degenerative joint disease of right knee (Chronic) 80 mg injection: 04/09/2025 (anterior approach) Subungual hematoma of foot (Acute) Right calf pain (Acute) Compression fracture of T12 vertebra (Acute) Abdominal hernia (Acute) 01/03/25 [facility] Gastro note Long toenail (Acute) Plantar verruca (Acute) Thoracic radiculopathy (Acute) Blood dyscrasia (Acute) Allergies (Acute) Knee pain, right (Acute) Hypertrophic toenail (Acute) [place] (Acute) left heel Trigger thumb, right thumb (Acute) Back pain (Acute) Rectal incontinence (Acute) Addressed at GI visit 08/02/2024 recommend adding fiber to diet, fiber supplement and/or Imodium, start dicyclomine as needed. Work with dietitian; soft well cooked vegetables, avoid raw vegetables and leafy greens. IBS (irritable bowel syndrome) (Chronic) Ovarian cyst, left (Acute) Diverticulosis (Acute) CTS (carpal tunnel syndrome) (Acute) Pain of right thumb (Acute) Compression fracture of L4 vertebra (Acute) See MRI dated 09/24/[address] 10/2024: 4 compression fractures Malignant neoplasm of uterus (Acute) Endometrial cancer treated with brachytherapy in 2019. According to [facility] note 12/22/2023 no subsequent vaginal bleeding or symptoms recurrent. Normal pelvic CT in September 2023, plan is to follow-up in 6 months. 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 Prediabetes (Acute) Obesity (Chronic) Unsteadiness on feet (Acute) Primary generalized (osteo)arthritis (Acute) Gastro-esophageal reflux disease without esophagitis (Acute) Essential (primary) hypertension (Acute) Combined forms of age-related cataract, bilateral (Acute) Essential tremor (Acute) Personal history of malignant neoplasm of other parts of uterus (Acute) Dorsalgia, unspecified (Acute) Major depressive disorder, recurrent severe without psychotic features (Acute) Weakness (Acute) Vitamin D deficiency (Acute) Unspecified hearing loss, unspecified ear (Acute) Anxiety disorder, unspecified (Acute) Generalized anxiety disorder (Acute) Other spondylosis, lumbar region (Acute) Carpal tunnel syndrome, right upper limb (Acute) 08/31/2019 for EMG; 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 11/30/2023 for carpal tunnel release surgery Asthma (Chronic) Unilateral primary osteoarthritis, right knee (Acute) 02/01/2023 orthopedic injection of [place] Anatomical narrow angle, bilateral (Acute) Obstructive sleep apnea (Chronic) Pain in right ankle and joints of right foot (Acute) Low back pain, unspecified (Acute) Adjustment disorder, unspecified (Chronic) Morbid obesity due to excess calories (Acute) Medical History Follow-up exam Small bowel obstruction Constipation, unspecified Surgical History History of tonsillectomy History of bunionectomy of left great toe H/O hernia repair History of colon surgery Colon rupture repair H/O section (1988) History of colonoscopy (2018) History of cholecystectomy (2019) H/O laser iridotomy (2021) Family History Mother Anxiety Diabetes Heart disease Paternal Grandfather Cancer Brother Depression Diabetes Cancer Maternal Grandmother Heart disease Social History Smoking/Tobacco Use Status: Never Second Hand Exposure: No Smoking risk assessment performed?: Yes Alcohol Intake: never Drug use: Never Substance use type: does not use Adopted: No Caregiver/Support person: No Foster care: No Household members: none Housing: apartment Number of Children: 2 number of grandchildren: 0 Communication Needs: Hard of Hearing and Corrective Lenses Education Level: college Do you need help understanding health information?: Often Pets and animals: No Sexually active: No Do you think of yourself as: straight/heterosexual Current gender identity: female What is your relationship status?: How often do you talk on the phone with friends or family?: three or more times per week How often do you get together with friends or relatives?: decline to answer Do you belong to any clubs or organized social groups?: decline to answer Panel score (0-1 are the most socially isolated patients): 1 What type of physical activity do you participate in: walking Duration: 30-45 minutes/day Frequency: daily Sharita/Lutheran: Other Seatbelt use: always Helmet use: No Drive intox or ride w/intox tractor driver: No Do you feel safe at home: Yes Do you feel safe in your relationship?: Yes
== END 2025-04-25 13:17 | disposition home or self-care (01) ==
PROVIDERS: Emergency Provider Student in an Organized Health Care Education/Training Program; PCP Nurse Practitioner Family
DX: S60.221A Contusion of right hand, initial encounter (principal); W23.0XXA Caught, crushed, jammed, or pinched between moving objects, initial encounter
CPT/HCPCS: 99283 ×2; 11730; 73130